=== PATIENT | male | born 1940 | race Caucasian/White ===

== ENCOUNTER 2024-02-03 23:55 | Inpatient (IN) | payer MEDICARE, BC, SELFPAY ==
[2024-02-03 22:08] VITALS: BP 134/81; BMI 27.4
[2024-02-03 22:24] LABS: % Basophils 0.4 % (0-2); % Immature Granulocytes 0.7 % (0-0.5); % Lymphocytes 2.5 % (20.5-51.1); % Monocytes 5.1 % (1.7-9.3); % Neutrophils 91.3 % (42.2-75.2); Absolute Immature Granulocytes 0.1 10^3/uL (0-0.05); Absolute Lymphocytes 0.2 10^3/uL (1.2-3.4); Absolute Monocytes 0.4 10^3/uL (0.1-0.6); Absolute Neutrophils 6.7 10^3/uL (1.4-6.5); Hematocrit 40.7 % (39.0-52.0); Hemoglobin 13.3 g/dL (13.0-18.0); Mean Corp Hgb Conc. 32.7 g/dL (33.0-37.0); Mean Corpuscular Hgb 27.5 pg (27.0-31.0); Mean Corpuscular Volume 84.1 fL (80.0-94.0); Mean Platelet Volume 10.4 fL (7.4-10.4); Nucleated Red Blood Cells % 0 % (-); Platelet Count 207 10^3/uL (130-400); Red Blood Cell Count 4.84 10^6/uL (4.70-6.10); Red Cell Dist. Width 18.4 % (11.5-14.5); White Blood Cell Count 7.3 10^3/uL (4.8-10.8)
[2024-02-03 22:37] LABS: Urine Albumin 1+ (Neg - Trace); Urine Bilirubin Negative (Negative); Urine Character Clear (Clear); Urine Color Yellow; Urine Glucose Negative (Negative); Urine Ketone Negative (Negative); Urine Leukocyte Negative (Negative); Urine Nitrite Negative (Negative); Urine Occult Blood 2+ (Negative); Urine Specific Gravity 1.025 (<1.030); Urine Urobilinogen 2+ (Neg - 1+)
--- NOTE | 2024-02-03 22:43 | ED.GENMED ---
History of Present Illness
General
Chief Complaint: Heart Rate Problem
Source: patient and spouse
Exam Limitations: clinical condition
Time Seen by Provider: 02/03/24 22:05
Nursing documentation reviewed up to this point in time: agreed with
Travel History
Have you had any contact with someone who has COVID-19?: No
Do you have any symptoms of coronavirus? Fever > 100 degrees, chills, cough, shortness of breath, sore throat, loss of taste or smell, muscle aches, or headache?: No
History of Present Illness
History of Present Illness:
Patient is an 83-year-old male visiting from [place] who has had increasing weakness and fell in night striking the back of his head. Patient is not on any blood thinners other than aspirin. Patient has a history of atrial fibrillation but has
a Watchman device. Patient started 2 days ago with a cough and congestion. Yesterday did not have a good day as he was increasingly weak and had difficulty walking even with assistance. Patient's appetite is diminished. Patient does feel short
of breath. Patient denies chest pain. Patient denies abdominal pain, nausea, vomiting or diarrhea. Patient has not had a bowel movement in a couple days. Patient is complaining of urinary urgency and frequency and his urine was dark. Patient
had a radical prostatectomy for prostate cancer 12 years ago. Patient also had a history of Hodgkin's lymphoma that was diagnosed and treated with chemo in January 2020. 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 Patient's
[employer] magazine recently took off couple lesions on his toes. Patient is diabetic.
Past History
Past History
ED Past Medical History: Arrthythmia (Atrial fibrillation), Cancer (Hodgkin's lymphoma, prostate cancer), GERD, HTN, Hypercholesterolemia and NIDDM
Social History
Drug: Marijuana
Review of Systems
Review of Systems
All Other Systems: ROS reviewed and negative except as documented in HPI and ROS
Constitutional: Reports fever, fatigue and chills
EENT: Reports no symptoms
Respiratory: Reports cough and trouble breathing
Cardiac: Denies chest pain
ABD/GI: Reports constipated and anorexia; Denies abdominal pain, nausea, vomiting or diarrhea
: Reports frequency, difficulty voiding, urgency and dark urine; Denies dysuria or bleeding
Musculoskeletal: Reports no symptoms
Skin: Reports other (Feet are always discolored)
Neurological: Reports weakness (Generalized); Denies headache
Hematologic/Lymphatic: Reports bruising
Phy Exam
Physical Exam
Physical Exam:
Physical Exam
General: No apparent mild to moderate distress, alert and appropriate but somewhat lethargic, well nourished, dry mucous membranes
HENT: Normocephalic with no deformity but mild tenderness posteriorly, supple with no lymphadenopathy, no thyromegaly. No cervical spine tenderness
Eyes: Clear sclera, conjuctiva without injection
Heart: irregular irregular rhythm and tachycardic rate. No S3, S4. No murmur. No NVD
Lungs: No respiratory distress, no stridor, lung sounds are coarse but clear and equal bilaterally, chest wall symmetrical and nontender
Abdomen: Soft, nontender, no organomegaly, ess, BS good
Neuro: Alert and usual mental status, CN II - XII intact, no motor focality
Skin: no rash. Multiple areas of ecchymosis with discoloration of bilateral feet which according to his is chronic
Psychiatric: well kept. interactive and cooperative
Extremities: No edema, cyanosis, tenderness
Course
Orders/Labs/Results
Orders:
Orders
02/03/24 22:04
Electrocardiogram (*1) Urgent
Reason for Study: Chest Pain
Cardiac Monitoring- Treatment ONCE
EKG- Treatment ONCE
IV Insert/Care/Rem.- Treatment PRN
O2 Therapy [RESP] Urgent
Titrate/Wean O2 to maintain O2 sat greater than (%): 90
Special Instructions: Maintain sats >/=90%
Pulse Ox/spot Check [RESP] Urgent
Quantity: 1
Special Instructions: ON ROOM AIR
02/03/24 22:06
Straight cath- Treatment ONCE
02/03/24 22:13
0.9% Sodium Chloride 500 ml [Nss] 500 ml IV BOLUS
CR Chest Portable - 1 View Urgent
Comment:
Reason For Exam: weakness sob
Reason Study Needs to be Portable: Patient Unstable
02/03/24 22:18
Complete Blood Count/With Diff Urgent
Comprehensive Metabolic Panel Urgent
Lactic Acid Q4H
Comment: ON ICE, CANCEL 2ND ORDER IF FIRST LACTIC ACID LEVEL <2
Troponin I Urgent
Urinalysis Reflex To Culture Urgent
Date Specimen was Collected: 02/03/24
Time Specimen was Collected: 22:06
Urine Microscopic Reflex Cult Urgent
Blood Culture Q30M
[facility] Source: Blood/Venous
Specimen Description:
Comment: FROM 2 SEPARATE SITES
02/03/24 22:19
Blood Culture Q30M
[facility] Source: Blood/Venous
Specimen Description:
Comment: FROM 2 SEPARATE SITES
02/03/24 22:22
Acetaminophen [Tylenol] 1,000 mg PO NOW STA
02/03/24 22:37
COVID-19 Antigen Urgent
Source: Nasal Swab
02/03/24 22:49
CT Head W/o Iv Contrast Urgent
Comment:
Reason For Exam: fell struck back of head
02/03/24 22:52
0.9% Sodium Chloride 1000 ml [Nss] 1,000 ml IV NOW STA
Azithromycin 500 mg/250 ml [Zithromax Infusion] 500 mg in 250 ml IV NOW
CefTRIAXone [Rocephin] 1,000 mg IV NOW STA
02/03/24 23:30
0.9% Sodium Chloride 500 ml [Nss] 500 ml IV BOLUS
02/04/24 02:15
Lactic Acid Q4H
Comment: ON ICE, CANCEL 2ND ORDER IF FIRST LACTIC ACID LEVEL <2
Abnormal Lab Results
02/03/24
22:18
MCHC 32.7 L g/dL
(33.0-37.0)
RDW 18.4 H %
(11.5-14.5)
Abs Immat Gran (auto) 0.1 H 10^3/uL
(0-0.05)
Absolute Neuts (auto) 6.7 H 10^3/uL
(1.4-6.5)
Absolute Lymphs (auto) 0.2 L 10^3/uL
(1.2-3.4)
Immature Gran % 0.7 H %
(0-0.5)
Neutrophils % 91.3 H %
(42.2-75.2)
Lymphocytes % 2.5 L %
(20.5-51.1)
Sodium 134 L mmol/L
(135-145)
Carbon Dioxide 20 L mmol/L
(22-30)
BUN 22 H mg/dl
(9-20)
Glucose 121 H mg/dl
(70-99)
Lactic Acid 6.0 H* mmol/L
(0.7-2.0)
Total Bilirubin 1.9 H mg/dl
(0.2-1.3)
AST 60 H U/L
(17-59)
Alkaline Phosphatase 148 H U/L
(38-126)
Troponin I 0.147 H* ng/ml
Total Protein 6.2 L g/dl
(6.3-8.2)
Ur Occult Blood Reflex 2+ A
(Negative)
Urine Urobilinogen 2+ A
(Neg - 1+)
Urine RBC 7-10 A /HPF
(0-2)
Urine Bacteria (Reflex) Few A
(Negative)
Urine Albumin (Reflex) 1+ A
(Neg - Trace)
02/03/24 22:18
02/03/24 22:18
Vital Signs
Initial and Last Documented VS:
Initial Vital Signs
Pulse Resp BP Pulse Ox
108 28 134/81 92
02/03/24 22:08 02/03/24 22:08 02/03/24 22:08 02/03/24 22:08
Last Documented Vital Signs
Temp Pulse Resp BP Pulse Ox
102.1 F H 108 28 134/81 92
02/03/24 22:16 02/03/24 22:08 02/03/24 22:08 02/03/24 22:08 02/03/24 22:08
*Radiology
Radiology exam reviewed: radiology read reviewed (Multiple lobar pneumonia)
*Pulse Oximetry
Patient hypoxic: no
*EKG
Interpreted by ED Provider?: Yes
EKG Intrepretation Date: 02/03/24
EKG Intrepretation Time: 22:51
Interpretation: abnormal
Comparison EKG: no comparison EKG present
Heart Rate: 109
Rate: tachycardiac
Rhythm: a-fib
[place]: left axis deviation
Interval: normal QT interval
QRS Pattern: right bundle branch block
Ischemia: non-specific ST changes
*Recreation Worker Interpretation
Rate: tachycardiac
Interpretation: abnormal
Heart Rate: 110
Rhythm: a-fib
*Critical Care Note
Total Time (30-74mins, 75-104mins- exclusive of procedures): 45 minutes
Update Note
Update Note:
Patient's lactic is elevated. Patient has pneumonia. Patient will be admitted.
ED Attending Note
-
Portions of this chart may have been created with voice recognition software.� Occasional wrong word or��sound alike� substitutions may have occurred due to the inherent limitations of voice recognition software.
Discharge Plan
Departure
Patient Disposition: Admit
Date of Disposition: 02/03/24
Time of Disposition: 22:55
Admit to: ICU and IMU
Admit to doctor: Hospitalist
Presentation/result/management discussed w/ accepting MD/DO: Hospitalist
Patient with high blood pressure during this ER visit?: No
Condition: Serious
Discharge Problem:
Pneumonia, Sepsis
Prescriptions:
No Action
glyburide 5 mg Tablet
5 mg PO DAILY
sertraline [Zoloft] 100 mg Tablet
75 mg PO DAILY
pantoprazole [Protonix] 40 mg Tablet,Delayed Release (Dr/Ec)
40 mg PO DAILY
metoprolol succinate [Toprol XL] 25 mg Tablet Extended Release 24 Hr
25 mg PO BID
bupropion HCl [Wellbutrin XL] 150 mg Tablet Extended Release 24 Hr
75 mg PO DAILY
tadalafil 2.5 mg Tablet
2.5 mg PO DAILY
Repatha Syringe 140 mg/mL Syringe
140 mg SC Q2W
Referrals:
UNKNOWN - PT DOES,NOT KNOW [Family Provider] -
Interventions
Interventions:
*Risk Screen - Suicide Last Done: 02/03/24 22:08
*General Assessment Last Done: 02/03/24 22:08
*Neglect/Abuse Screening Last Done: 02/03/24 22:08
ED- Cardiac Assessment Last Done: 02/03/24 22:21
Discharge Date and Time
Print Language: ROMANIAN
[2024-02-03] MEDS: NSS 500 IV (22:45)
[2024-02-03] MEDS: TYLENOL 1000 MG PO (22:46)
[2024-02-03 22:54] LABS: Urine Bacteria Few (Negative)
[2024-02-03 22:56] LABS: Troponin I 0.147 ng/ml
[2024-02-03 23:00] LABS: COVID-19 Antigen Negative (Negative)
[2024-02-03] MEDS: NSS 1000 ML IV (23:04)
[2024-02-03] MEDS: ROCEPHIN 1000 MG IV (23:05)
[2024-02-03 23:08] LABS: Albumin 3.7 g/dl (3.5-5.0); Blood Urea Nitrogen 22 mg/dl (9-20); Carbon Dioxide 20 mmol/L (22-30); Estimated Creatinine Clearance 51 ml/min; Total Bilirubin 1.9 mg/dl (0.2-1.3); Total Protein 6.2 g/dl (6.3-8.2); eGFR > 60.00
[2024-02-03] MEDS: ZITHROMAX INFUSION 250 IV (23:09)
[2024-02-03 23:19] LABS: ALT (SGPT) 32 U/L (0-50); AST (SGOT) 60 U/L (17-59); Alkaline Phosphatase 148 U/L (38-126); Chloride 100 mmol/L (98-107); Glucose 121 mg/dl (70-99); Potassium 4.6 mmol/L (3.5-5.1); Sodium 134 mmol/L (135-145)
[2024-02-04] VITALS (39 sets, daily range): BP systolic 87–163; BP diastolic 56–122; PULSE 94–105; BMI 27.6
--- NOTE | 2024-02-04 | HPS.HSE ---
Family Physician
-
Family Physician: NOT KNOW UNKNOWN - PT DOES
Chief Complaint
-
Fall / Weakness
History of Present Illness
Patient is an 83y M with PMH significant for ASCVD, lymphoma and DM-II who presents to ED for evaluation s/p fall at home. Patient and his are visiting family in the area - currently reside in [place]. Patient states that he began with
cough, congestion symptoms about 3 days ago. He had some fever / chills over the past 24 hours and felt somewhat SOB and increasingly weak. Patient has some gait instability at baseline due to peripheral neuropathy. This evening, he attempted to
get OOB to use the bathroom, lost his balance and fell to the floor. He states that he did strike the back of his head on the floor. He denies any LOC. He denies any chest pain, palpitations, dizziness, etc.
Patient was brought to the ED for evaluation and was noted to have fever to 102.1. Further evaluation reveals left-sided pneumonia / sepsis.
reportedly had some cold symptoms prior to the patient. He denies any other sick contacts.
Medical History
Past Medical History
Past Medical History: Reports Other
Additional Past Medical History:
ASCVD
Permanent Atrial Fibrillation
Hodgkin's Lymphoma (2000)
Peripheral Neuropathy (chemo induced)
DM-II
Factor XI Deficiency
BPH
Anxiety / Depression
Past Surgical History: Reports Other
Additional Past Surgical History:
PTCA with Stent
T&A (and incidental uvulectomy)
Watchman Device
Left Knee Surgery
Excisional Lymph Node Biopsy
Social History
Tobacco: Vaping (Current every day THC vape use.)
Alcohol: Occasional (Very rare.)
Drug: Marijuana (See above.)
Personal:
Living: With Family
Family History
Family History: Not pertinent
Allergies / Home Medications
Allergies reflects when Allergies were last updated in [facility].
Home Medications with original date entered in [facility]
Allergy/Medication List:
Allergies
Allergy/AdvReac Type Severity Reaction Status Date / Time
fentanyl Allergy Unknown Verified 02/03/24 22:16
midazolam [From Versed] Allergy Unknown Verified 02/03/24 22:16
morphine Allergy Rash Verified 02/03/24 22:16
Home Medications
aspirin 81 mg chewable tablet 81 mg PO HS 02/03/24
bupropion HCl 150 mg 24 hr tablet, extended release (Wellbutrin XL) 75 mg PO DAILY 02/03/24
evolocumab 140 mg/mL subcutaneous syringe (Repatha Syringe) 140 mg SC Q2W 02/03/24
glyburide 5 mg tablet 5 mg PO DAILY 02/03/24
metoprolol succinate 25 mg tablet,extended release 24 hr (Toprol XL) 25 mg PO BID 02/03/24
mirabegron 25 mg tablet,extended release 24 hr (Myrbetriq) 25 mg PO HS 02/03/24
nortriptyline 25 mg capsule 25 mg PO HS 02/03/24
pantoprazole 40 mg tablet,delayed release (Protonix) 40 mg PO DAILY 02/03/24
sertraline 100 mg tablet (Zoloft) 75 mg PO DAILY 02/03/24
tadalafil 2.5 mg tablet 2.5 mg PO DAILY 02/03/24
Review of Systems
-
History Source: Patient and Family
A 12 point ROS was completed and negative except as noted: Yes
Constitutional: Reports Fever, Fatigue and Chills
EENT: Denies Sore Throat
Respiratory: Reports Cough and Trouble Breathing; Denies Hemoptysis
Cardiac: Denies Chest Pain, Diaphoresis, Palpitations or Syncope
Abdomen/GI: Reports Constipated (Last BM 3 days ago.); Denies Abdominal Pain, Nausea, Vomiting or Diarrhea
: Denies Dysuria, Frequency or Flank Pain
Musculoskeletal: Denies Joint Pain, Joint Swelling or Edema
Neurological: Reports Weakness and Numbness; Denies Dizzy or Headache
Psych: Denies Depression or Anxiety
Physical Exam
Vital Signs
Vital Signs
Temp Pulse Resp BP Pulse Ox
102.1 F H 99 37 134/81 96
02/03/24 22:16 02/03/24 23:15 02/03/24 23:15 02/03/24 22:08 02/03/24 23:15
Physical Exam
General: Other (83y M in no acute distress.)
HEENT: Moist mucous membranes and PERRLA
Respiratory: Other (Coarse rhonchi throughout the L lung. R relatively clear. No wheezing.)
Cardiac: S1/S2 and Regular Rhythm
GI: Soft, Non Tender, Non Distended and Normal Bowel Sounds
Musculoskeletal: No Clubbing and Other (Poor capillary refill b/l feet with diminished pulses bilaterally. Superficial skin lesions R great toe (planter), L second toe (distal). L lateral ankle wound with dressing in place.)
Neuro: AO x 3
Psych: No Anxious or Depressed
Laboratory Results
-
02/03/24 22:18
02/03/24 22:18
Laboratory Results
Lactic Acid 6.0 mmol/L (0.7-2.0) H* 02/03/24 22:18
Total Bilirubin 1.9 mg/dl (0.2-1.3) H 02/03/24 22:18
AST 60 U/L (17-59) H 02/03/24 22:18
ALT 32 U/L (0-50) 02/03/24 22:18
Alkaline Phosphatase 148 U/L (38-126) H 02/03/24 22:18
Troponin I 0.147 ng/ml H* 02/03/24 22:18
Impression/Plan
-
A/P: Patient is an 83y M with PMH significant for ASCVD, DM-II and peripheral neuropathy who presents to ED with several days of cough / congestion and fall at home this evening.
Left Pneumonia
Acute Hypoxemic Respiratory Insufficiency secondary to the above
Sepsis secondary to the above
- Admit for further evaluation and treatment.
- Patient presents with fever, tachycardia, tachypnea and CXR showing L multilobar pneumonia.
- Evidence for life-threatening organ dysfunction in the form of acute hypoxemia with SpO2 92% on supplemental O2.
- Lactate = 6 on initial labs.
- IV abx for CAP.
- Supportive care including IVFs, nebs, O2, etc.
- Follow for clinical improvement.
- Follow-up culture data and adjust abx as needed.
- Follow serial lactate levels for improvement.
Non-Ischemic Myocardial Injury
ASCVD
- Initial troponin = 0.147. Elevation likely secondary to sepsis.
- EKG shows RBBB with no prior tracing to compare.
- Continue to follow to peak.
- Continue current CV med regimen including daily ASA.
- Consider Cardiology evaluation if any chest pain, EKG changes or troponin continues to increase.
Fall at Home
Peripheral Neuropathy secondary to Chemo
Chronic Gait Dysfunction secondary to the above
- CT head without acute findings this evening.
- Suspect increased weakness secondary to infection / sepsis.
- Treat underlying infection as noted above.
- Continue nortriptyline.
- PT / OT evaluations.
- Follow for improvement.
DM-II
- Stable. Hold sulfonylurea acutely.
- Follow glucose and cover with SSI as needed.
- Update A1C.
Permanent Atrial Fibrillation
- Stable. HR around 100 bpm.
- Continue current med regimen including Toprol for rate control.
- Watchman device in place for stroke risk reduction.
Factor XI Deficiency
- Stable. Scattered ecchymosis but no evidence of more severe bleeding.
- CT head unremarkable as noted above.
Anxiety / Depression
- Stable. Continue outpatient med regimen.
DVT Prophylaxis: SCDs. Avoid pharmacologic prophylaxis given Factor XI deficiency
Code Status: Full
[2024-02-04] MEDS: NSS 500 IV (01:10)
[2024-02-04] MEDS: LOW STRENGTH ASPIRIN 81 MG PO ×2 (02:02→20:29)
[2024-02-04] MEDS: PAMELOR 25 MG PO ×2 (02:03→20:29)
[2024-02-04] MEDS: NSS 1000 IV (02:08)
[2024-02-04 02:41] LABS: Lactic Acid 1.4 mmol/L (0.7-2.0)
[2024-02-04 05:57] LABS: Hematocrit 33.5 % (39.0-52.0); Hemoglobin 10.9 g/dL (13.0-18.0); Mean Corp Hgb Conc. 32.5 g/dL (33.0-37.0); Mean Corpuscular Hgb 27.3 pg (27.0-31.0); Mean Platelet Volume 10.6 fL (7.4-10.4); Platelet Count 146 10^3/uL (130-400); Red Blood Cell Count 3.99 10^6/uL (4.70-6.10); Red Cell Dist. Width 17.9 % (11.5-14.5); White Blood Cell Count 6.7 10^3/uL (4.8-10.8)
[2024-02-04 06:27] LABS: ALT (SGPT) 30 U/L (0-50); AST (SGOT) 64 U/L (17-59); Alkaline Phosphatase 100 U/L (38-126); Blood Urea Nitrogen 21 mg/dl (9-20); Carbon Dioxide 22 mmol/L (22-30); Chloride 107 mmol/L (98-107); Direct Bilirubin 0.8 mg/dl (0.0-0.4); Estimated Creatinine Clearance 64 ml/min; Glucose 40 mg/dl (70-99); Potassium 3.9 mmol/L (3.5-5.1); Sodium 135 mmol/L (135-145); Total Bilirubin 1.1 mg/dl (0.2-1.3); Total Protein 5.7 g/dl (6.3-8.2); eGFR > 60.00
[2024-02-04 06:48] LABS: Glucose - Point of Care 39 mg/dl (70-99)
[2024-02-04] MEDS: DEXTROSE 50% SYRINGE 12.5 GRAMS IV (06:53)
[2024-02-04 07:19] LABS: Glucose - Point of Care 63 mg/dl (70-99)
[2024-02-04] MEDS: D5/0.9% SODIUM CHLORIDE 1000 IV (07:22)
[2024-02-04] MEDS: VENTOLIN NEBULES 2.5 MG INH (07:36)
[2024-02-04] MEDS: NOVOLOG FLEXPEN-LOW RESISTANCE SC ×2 (07:36→11:54)
--- NOTE | 2024-02-04 07:42 | W.PN.HOSP.TC ---
Today's Communication/Plan
-
see A/P
Assessment / Plan
Assessment / Plan
HPI: 83 yo M with PMH significant for ASCVD, lymphoma and DM-II who presented to ED for evaluation s/p fall at home. Patient and his are visiting family in the area - currently reside in [place].
Patient states that he began with cough, congestion symptoms about 3 days HOME HEALTH LPN. He had some fever / chills over the past 24 hours and felt somewhat SOB and increasingly weak.
Patient has some gait instability at baseline due to peripheral neuropathy. In the evening, he attempted to get OOB to use the bathroom, lost his balance and fell to the floor. He states that he did strike the back of his head on the floor. He
denied to LOC. He denies any chest pain, palpitations, dizziness, etc.
Patient was brought to the ED for evaluation and was noted to have fever to 102.1. Further evaluation reveals left-sided pneumonia / sepsis.
reportedly had some cold symptoms prior to the patient. He denies any other sick contacts.
CXR:
1. Dense airspace consolidation in the posterior basilar left lower lobe. Diagnostic possibilities are (1) left lower lobe pneumonia if there are signs/symptoms of pulmonary infection or (2) left lower lobe atelectasis/scarring.
2. Mild subpleural ground-glass opacity in the left upper lobe which could be mild pneumonia or scarring.
3. Moderate cardiomegaly.
4. No radiographic evidence for acute pulmonary edema or pleural effusion.
A/P:
# severe sepsis POA due to CAP/Left Pneumonia. Patient presented with fever, tachycardia, tachypnea and CXR showing L multilobar pneumonia.
# Acute Hypoxemic Respiratory Insufficiency secondary to the above
# Resolved lactic acidosis
Cont O2 support at 2L NC, he is not on home O2
COVID neg
check Flu, MRSA screen, follow blood Cx, sputum Cx
Cont Ceftriaxone/doxycycline
Cont DuoNebs ATC and PRN
Add prednisone 40 mg daily for mild wheezing
Add Mucinex and Vest therapy
Tylenol for fever/mild pain
# Troponin elevation likely Non-Ischemic Myocardial Injury
Initial troponin at 0.147. Follow for peak/plateau
EKG shows RBBB with no prior tracing to compare.
Continue current CV med regimen including daily ASA.
Consider Cardiology evaluation if any chest pain, EKG changes or troponin continues to increase.
# Fall at Home
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
# Chronic Gait Dysfunction secondary to the above
CT head without acute findings this evening.
Suspect increased weakness secondary to infection / sepsis.
Treat underlying infection as noted above.
Continue nortriptyline.
PT / OT evaluations.
# DM-II
# Hypoglycemia, resolved after treatment
Hold sulfonylurea acutely.
s/p D50 for hypoglycemia
Cover with ISS
Follow A1C.
# Permanent Atrial Fibrillation, Stable.
HR around 100 bpm.
Continue current med regimen including Toprol (with holding parameter) for rate control.
Watchman device in place for stroke risk reduction.
# Factor XI Deficiency- Stable.
Scattered ecchymosis but no evidence of more severe bleeding.
CT head unremarkable as noted above.
# Anxiety / Depression- Stable.
Continue outpatient med regimen.
DVT Prophylaxis: SCDs. Avoid pharmacologic prophylaxis given Factor XI deficiency
Code Status: Full
DW RN
DW at bedside
Anticipated Discharge: > 48 hours
Subjective/Interval History
-
Date of Service: February 04, 2024
Objective Data
-
Labs:
Laboratory Results
02/03/24 02/04/24 02/04/24
22:18 05:47 06:07
WBC 7.3 6.7
Hgb 13.3 10.9 L
Hct 40.7 33.5 L
Plt Count 207 146 D
Sodium 134 L Cancelled 135
Potassium 4.6 Cancelled 3.9
Chloride 100 Cancelled 107
Carbon Dioxide 20 L Cancelled 22
BUN 22 H Cancelled 21 H
Creatinine 1.0 Cancelled 0.8
Glucose 121 H Cancelled 40 L*
Calcium 9.0 Cancelled 8.0 L
Total Bilirubin 1.9 H Cancelled 1.1
AST 60 H Cancelled 64 H
ALT 32 Cancelled 30
Alkaline Phosphatase 148 H Cancelled 100
Vital Signs:
Vital Signs
Temp Pulse Resp BP Pulse Ox
38.9 C H 101 35 101/86 96
02/03/24 22:16 02/04/24 06:30 02/04/24 06:30 02/04/24 06:00 02/04/24 06:15
Review of Systems
-
Constitutional: Reports Fever
Respiratory: Reports Cough and Trouble Breathing
Physical Exam
-
General: Well Developed, Well Nourished, Comfortable, Respiratory Distress (mild) and Conversant
HEENT: Normocephalic, Atraumatic, Nose Appears Normal, Ears Appear Normal and Oxygen (2L NC)
Respiratory: Clear to Auscultation, Wheezes (mild at bases), Crackles (mild) and Non Labored Respirations; Negative Accessory Resp Muscle Use
Cardiac: Regular Rhythm and S1/S2
GI: Soft, Nontender, Nondistended and Normal Bowel Sounds
Skin: Warm and Dry
Neuro: Awake, Alert, Oriented and AO x 3
Psych: Calm and Intact Judgement/Insight
Data Reviewed
-
Diagnostic Radiology: Image personally visualized and interpreted and Report Reviewed by me
Labs: Labs Reviewed by me
[2024-02-04 08:13] LABS: Glucose - Point of Care 102 mg/dl (70-99)
[2024-02-04] MEDS: PROTONIX 40 MG PO (08:38)
[2024-02-04] MEDS: VIBRAMYCIN 100 MG PO ×2 (08:38→20:29)
[2024-02-04] MEDS: MUCINEX 1200 MG PO ×2 (08:38→20:29)
[2024-02-04] MEDS: COLACE 100 MG PO ×2 (08:39→20:29)
[2024-02-04] MEDS: ZOLOFT 25 MG PO ×2 (08:39→08:42)
[2024-02-04] MEDS: ZOLOFT 50 MG PO (08:39)
[2024-02-04] MEDS: DELTASONE 40 MG PO (08:39)
[2024-02-04] MEDS: TOPROL XL 25 MG PO ×2 (08:42→20:29)
[2024-02-04 10:21] LABS: Glucose - Point of Care 120 mg/dl (70-99)
--- NOTE | 2024-02-04 11:03 | CON.CAR ---
Consultation
Consultation Request
Date/Time Consultation Requested: 02/04/2024
Date/Time Consultation Performed: 02/04/2024
Requesting Provider: Dr. Kyle
Performing Provider: Dr. Alfaro
Reason for Consultation: Abnormal troponin
Medical History
-
Chief Complaint: Fall
History of Present Illness:
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
block, lymphoma and diabetes who presented for evaluation for a fall. He resides in [place]---I spoke to the covering set up mechanic heading machines(Dr Byrd covering for Dr Hodges) at family request to confirm historial data. He is her is visiting but for
the past 3 days has felt a cough and congestion with fever and chills. His is present and reports recent cold like symptoms. He reports he had been to [place] and got around great on Tuesday but did fly from [place] on Tuesday. With feeling
poorly he had increasing weakness and gait instability due to his neuropathy, he lost his balance and fell. He denies le edema, cp or weight gain,in fact has been trying to lose weight at home. In the ED on arrival, he was found to have a
temperature to 102.1. Chest x-ray showed left-sided pneumonia. We are asked to comment on elevated troponin.
Of note, he is quite dypsneic on conversation.
Past Medical History
Past Medical History: Arrhythmias (Chronic atrial fibrillation status post Watchman device), Cancer ( Hodgkin's lymphoma,), NIDDM and Other (BPH, anxiety, factor IX deficiency, peripheral neuropathy secondary to chemotherapy)
Past Surgical History: Orthopedic and Other (Lymph node biopsy)
Social History
Tobacco: Vaping ( THC every day)
Alcohol: Occasional
Drug: Marijuana (Vaping)
Personal:
Living: With Family
Family History
Family History: Reviewed & Not Pertinent
Allergies / Home Medications
Allergy/AdvReac Type Severity Reaction Status Date / Time
fentanyl Allergy Unknown Verified 02/03/24 22:16
midazolam [From Versed] Allergy Unknown Verified 02/03/24 22:16
morphine Allergy Rash Verified 02/03/24 22:16
�Medication �Instructions �Recorded �Confirmed �Type
aspirin 81 mg chewable tablet 81 mg PO HS Blood Clot 02/03/24 02/03/24 History
Prevention/Tx
bupropion HCl 150 mg 24 hr tablet, 75 mg PO DAILY Depression 02/03/24 02/03/24 History
extended release (Wellbutrin XL)
evolocumab 140 mg/mL subcutaneous 140 mg SC Q2W High Cholesterol 02/03/24 02/03/24 History
syringe (Repatha Syringe)
glyburide 5 mg tablet 5 mg PO DAILY Diabetes 02/03/24 02/03/24 History
metoprolol succinate 25 mg 25 mg PO BID Blood Pressure 02/03/24 02/03/24 History
tablet,extended release 24 hr
(Toprol XL)
mirabegron 25 mg tablet,extended 25 mg PO HS Urinary Issue 02/03/24 02/03/24 History
release 24 hr (Myrbetriq)
nortriptyline 25 mg capsule 25 mg PO HS Neurological Condition 02/03/24 02/03/24 History
pantoprazole 40 mg tablet,delayed 40 mg PO DAILY Gastrointestinal 02/03/24 02/03/24 History
release (Protonix) Issue
sertraline 100 mg tablet (Zoloft) 75 mg PO DAILY Depression 02/03/24 02/03/24 History
tadalafil 2.5 mg tablet 2.5 mg PO DAILY Urinary Issue 02/03/24 02/03/24 History
Review of Systems
-
All other systems: Negative unless noted
Physical Exam
Vital Signs
Temp Pulse Resp BP Pulse Ox
98.8 F 88 21 138/69 98
02/04/24 09:30 02/04/24 09:52 02/04/24 09:52 02/04/24 09:52 02/04/24 09:30
Lab Results
02/04/24 05:47
02/04/24 06:07
Troponin I Cancelled 02/04/24 16:15
Physical Exam
General: Well Developed, Well Nourished and Respiratory Distress (dyspneic with conversation.)
Respiratory: Wheezes (diffuse) and Crackles (b/l )
Cardiac: Irregular Rhythm, Murmur (none), Peripheral Edema (nonw) and JVD (difficult to assess with body habitus)
GI: Soft and Non Tender
Skin: Warm
Neuro: AO x 3
Impression / Plan
-
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
at home. Additionally, he has had increasing shortness of breath cough that is nonproductive and fever. He is noted to be quite febrile on arrival at 102.1. We are asked to comment on abnormal troponin.
Hypoxic respiratory failure: He is quite tachypneic with her conversation. He denies shortness of breath. This may very well be due to a pneumonia seen on x-ray however it seems worse than the chest x-ray appears to me. I did discuss this with
Dr. Kyle. I think it is reasonable to rule out PE given [address] flight given his degree of tachypnea. Certainly his hemophilia may prevent blood clot but I do not think this completely rules that out. Meanwhile he will continue to be
treated for pneumonia. Heart failure exam is difficult due to body habitus and chest x-ray did not show overt heart failure. However I will add proBNP given his history of dilated cardiomyopathy this may be playing a role.
Type II VA due to acute hypoxic respiratory failure: This may be contributed to the pneumonia, but ruling out PE is a good idea. We will update his echocardiogram on Tuesday or sooner if clinically indicated. He has known prior CAD. X-ray sounds
chronic we will request formal records.
Pneumonia: Severe, oxygen requiring oxygen. Treatment as per Dr. Kyle.
CAD: Status post PCI 2017 with recent angiogram 2020 showing patent stents: Continue aspirin and beta-sukhdeep, chronically on Repatha. No chest pain currently.
Chronic atrial fibrillation: Initially RVR but improved with treatments. Will continue to monitor rate. He is status post Watchman device.
Dilated cardiomyopathy recovered in the setting of Adriamycin, chronic. Volume exam is difficult. Heart failure may be at play. Will add proBNP. Will offer diuresis if feel this will improve his care. Will update echo.
RBBB chronic
My concern of their his severe tachypnea was discussed with Dr. Kyle. She agrees and we worry this may be out of proportion to the reported pneumonia. CT PE will be done. This will also help us evaluate his parenchyma of the the lungs.
Will follow-up.
Data Reviewed
-
EKG: Tracing Personally Visualized and interpreted (EKG tracing on arrival showed atrial fibrillation with rapid ventricular response at 109, right bundle branch block pattern and inferior infarct., Repeat shows atrial fibrillation with similar
right bundle branch block and inferior infarct rate of 84.)
Radiology: Image Personally Visualized and interpreted (Poor effort, no sign of heart failure), Report Reviewed by me (Dense airspace disease in the left lower lobe differential pneumonia versus atelectasis, moderate cardiomegaly, subpleural
groundglass opacity in left upper lobe consistent with mild pneumonia versus scarring.) and Other (CT head showed no acute abnormality)
Labs: Labs Reviewed by me (Initial lactic acidosis 6.0 with troponin of 0.147 increased to 3.06)
--- NOTE | 2024-02-04 11:16 | EDRN ---
Pt's in home aide in [place]
Dr. Marc Hodges Cardiology
[phone]
[facility]
[place], [place]
[2024-02-04] MEDS: TYLENOL 650 MG PO (11:26)
[2024-02-04] MEDS: DUONEB 3 ML INH ×4 (11:57→23:27)
[2024-02-04 12:11] LABS: Glycohemoglobin (HgbA1c) 6.3 % (4.0-5.6)
[2024-02-04 12:32] LABS: NT-proBNP 3820 pg/ml
[2024-02-04 12:51] LABS: Procalcitonin 13.27 ng/ml (0.0-0.25)
[2024-02-04 13:24] LABS: Glucose - Point of Care 160 mg/dl (70-99)
--- NOTE | 2024-02-04 13:58 | EDRN ---
Dr. Jamal Baca MD [facility]
[phone] cell
[2024-02-04 16:33] LABS: Glucose - Point of Care 187 mg/dl (70-99)
--- NOTE | 2024-02-04 17:08 | PTCARENOTE ---
Received approx 2pm, AAOx3- present. Imu monitors placed and admission completed bedside. Pt from [place], staying with daughter. Lungs scattered Rhonchi, NPC. 95% on RAIR. Slightly FOWLER. Appetite fair, No void noted yet. Last BM was
Tuesday- not uncommon for him not to go but q3-4 days. Wounds noted - centrella air mattress- nothing is new per pt. Call vasquez in reach.
[2024-02-04] MEDS: NOVOLOG FLEXPEN-LOW RESISTANCE 1 UNITS SC (18:11)
[2024-02-04 21:27] LABS: Glucose - Point of Care 271 mg/dl (70-99)
[2024-02-04] MEDS: ROCEPHIN 1000 MG IV (22:07)
[2024-02-04] MEDS: STERILE WATER FOR INJECTION 10 ML IV (22:08)
[2024-02-04] MEDS: MELATONIN 5 MG PO (23:20)
[2024-02-05] VITALS (16 sets, daily range): BP systolic 90–146; BP diastolic 70–105; PULSE 97–108; O2SAT 98; BMI 27.3
[2024-02-05 04:36] LABS: % Basophils 0.3 % (0-2); % Immature Granulocytes 0.5 % (0-0.5); % Lymphocytes 5.5 % (20.5-51.1); % Monocytes 9.8 % (1.7-9.3); % Neutrophils 83.9 % (42.2-75.2); Absolute Lymphocytes 0.4 10^3/uL (1.2-3.4); Absolute Monocytes 0.7 10^3/uL (0.1-0.6); Absolute Neutrophils 6.3 10^3/uL (1.4-6.5); Hematocrit 33.4 % (39.0-52.0); Mean Corp Hgb Conc. 32.9 g/dL (33.0-37.0); Mean Corpuscular Hgb 27.7 pg (27.0-31.0); Mean Corpuscular Volume 84.1 fL (80.0-94.0); Mean Platelet Volume 10.5 fL (7.4-10.4); Nucleated Red Blood Cells % 0 % (-); Platelet Count 180 10^3/uL (130-400); Red Blood Cell Count 3.97 10^6/uL (4.70-6.10); Red Cell Dist. Width 18.3 % (11.5-14.5); White Blood Cell Count 7.5 10^3/uL (4.8-10.8)
[2024-02-05 05:38] LABS: ALT (SGPT) 29 U/L (0-50); AST (SGOT) 51 U/L (17-59); Albumin 3.1 g/dl (3.5-5.0); Alkaline Phosphatase 122 U/L (38-126); Blood Urea Nitrogen 19 mg/dl (9-20); Calcium 8.8 mg/dl (8.4-10.2); Carbon Dioxide 23 mmol/L (22-30); Chloride 105 mmol/L (98-107); Direct Bilirubin 0.6 mg/dl (0.0-0.4); Estimated Creatinine Clearance 73 ml/min; Glucose 102 mg/dl (70-99); Magnesium 1.8 mg/dl (1.6-2.3); Potassium 3.8 mmol/L (3.5-5.1); Sodium 137 mmol/L (135-145); Total Bilirubin 0.8 mg/dl (0.2-1.3); Total Protein 5.5 g/dl (6.3-8.2); eGFR > 60.00
--- NOTE | 2024-02-05 06:17 | PTCARENOTE ---
Cared for pt overnight. aaox3 but forgetful. BA on. at bedside. AFib on monitor. VSS. Pt tachypneic & wheezing. Nebs given. Melatonin given HS. ivabx. NO other issues overnight. Will monitor.
[2024-02-05] MEDS: TYLENOL 650 MG PO (06:42)
[2024-02-05] MEDS: DUONEB 3 ML INH ×4 (08:17→19:38)
--- NOTE | 2024-02-05 09:16 | W.PN.HOSP.TC ---
Today's Communication/Plan
-
see A/P
Assessment / Plan
Assessment / Plan
HPI: 83 yo M with PMH significant for ASCVD, lymphoma and DM-II who presented to ED for evaluation s/p fall at home. Patient and his are visiting family in the area - currently reside in [place].
Patient states that he began with cough, congestion symptoms about 3 days JEWEL SAWYER. He had some fever / chills over the past 24 hours and felt somewhat SOB and increasingly weak.
Patient has some gait instability at baseline due to peripheral neuropathy. In the evening, he attempted to get OOB to use the bathroom, lost his balance and fell to the floor. He states that he did strike the back of his head on the floor. He
denied to LOC. He denies any chest pain, palpitations, dizziness, etc.
Patient was brought to the ED for evaluation and was noted to have fever to 102.1. Further evaluation reveals left-sided pneumonia / sepsis.
reportedly had some cold symptoms prior to the patient. He denies any other sick contacts.
CXR:
1. Dense airspace consolidation in the posterior basilar left lower lobe. Diagnostic possibilities are (1) left lower lobe pneumonia if there are signs/symptoms of pulmonary infection or (2) left lower lobe atelectasis/scarring.
2. Mild subpleural ground-glass opacity in the left upper lobe which could be mild pneumonia or scarring.
3. Moderate cardiomegaly.
4. No radiographic evidence for acute pulmonary edema or pleural effusion.
CT PE:
1. SEVERE LEFT LOWER LOBE PNEUMONIA and severe bronchitis in the left lower lobe bronchus and proximal segmental bronchi.
2. Moderate left upper lobe pneumonia.
3. Mild right upper and lower lobe pneumonia.
4. Mild cardiomegaly.
5. Severe calcific atherosclerotic plaque in the coronary arteries.
6. Left atrial appendage occlusion device in place.
7. 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
A/P:
# severe sepsis POA due to CAP/Left Pneumonia. Patient presented with fever, tachycardia, tachypnea and CXR showing L multilobar pneumonia.
# Acute Hypoxemic Respiratory Insufficiency secondary to the above
# Resolved lactic acidosis
Procal elevated at 13.27
CT PE negative for PE
Cont O2 support at 2L NC and wean as tolerated, he is not on home O2
COVID/Flu negative, Urine Legionella/Strep Ag negative, blood culture negative
Follow MRSA screen, sputum Cx if able
Cont Ceftriaxone/doxycycline
Cont DuoNebs ATC and PRN
Added prednisone 40 mg daily for mild wheezing
Added Mucinex and Vest therapy
Tylenol for fever/mild pain
# Troponin elevation likely Non-Ischemic Myocardial Injury
# h/o CAD
Pt without chest pain
troponin peaked at 3.06
EKG shows RBBB with no prior tracing to compare.
Continue current CV med regimen including daily ASA.
Check update on Tuesday
Cardiology on board
# Fall at Home
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
# Chronic Gait Dysfunction secondary to the above
CT head without acute findings this evening.
Suspect increased weakness secondary to infection / sepsis.
Treat underlying infection as noted above.
Continue nortriptyline.
PT / OT evaluations.
# L lateral ankle pain by wound site
wound care CS
Check arterial and venous LLE
Check LLE XR
add low dose Dilaudid for pain (pt has morphine listed under allergy)
# DM-II
# Hypoglycemia, resolved after treatment
Hold sulfonylurea acutely.
s/p D50 for hypoglycemia
Cover with ISS
A1C 6.3%
# Permanent Atrial Fibrillation, Stable.
Continue JEWEL SAWYER Toprol (with holding parameter) for rate control.
Watchman device in place for stroke risk reduction.
# Factor XI Deficiency- Stable.
Scattered ecchymosis but no evidence of more severe bleeding.
CT head unremarkable as noted above.
# Anxiety / Depression- Stable.
Continue outpatient med regimen.
DVT Prophylaxis: SCDs. Avoid pharmacologic prophylaxis given Factor XI deficiency
Code Status: Full
DW RN
Anticipated Discharge: > 48 hours
Subjective/Interval History
-
Date of Service: February 05, 2024
Objective Data
-
Labs:
Laboratory Results
02/05/24
04:25
WBC 7.5
Hgb 11.0 L
Hct 33.4 L
Plt Count 180 D
Sodium 137
Potassium 3.8
Chloride 105
Carbon Dioxide 23
BUN 19
Creatinine 0.7
Glucose 102 H
Calcium 8.8
Total Bilirubin 0.8
AST 51
ALT 29
Alkaline Phosphatase 122
Vital Signs:
Vital Signs
Temp Pulse Resp BP Pulse Ox
36.4 C 93 30 116/105 97
02/05/24 04:14 02/05/24 06:00 02/05/24 06:00 02/05/24 06:00 02/05/24 06:00
I&O
02/04/24 02/05/24 02/06/24
06:59 06:59 06:59
Output Total 800 / 800
Balance -800 / -800
Review of Systems
-
Musculoskeletal: Reports Other (L foot pain by L lateral ankle wound)
Physical Exam
-
General: Well Developed, Well Nourished, Comfortable, Respiratory Distress (mild) and Conversant
HEENT: Normocephalic, Atraumatic, Nose Appears Normal, Ears Appear Normal and Oxygen (2L NC)
Respiratory: Clear to Auscultation, Wheezes (mild at bases), Crackles and Non Labored Respirations; Negative Accessory Resp Muscle Use
Cardiac: Regular Rhythm and S1/S2
GI: Soft, Nontender, Nondistended and Normal Bowel Sounds
Skin: Warm, Dry, Lesions (small wound at L lateral ankle) and Other (ecchymosis of skin around the body)
Neuro: Awake, Alert, Oriented and AO x 3
Psych: Calm and Intact Judgement/Insight
Data Reviewed
-
Diagnostic Radiology: Image personally visualized and interpreted and Report Reviewed by me
CT Scan: Report Reviewed by me
Labs: Labs Reviewed by me
[2024-02-05 09:35] LABS: Glucose - Point of Care 72 mg/dl (70-99)
[2024-02-05] MEDS: NOVOLOG FLEXPEN-LOW RESISTANCE SC ×3 (09:42→21:26)
[2024-02-05] MEDS: VIBRAMYCIN 100 MG PO ×2 (10:47→20:52)
[2024-02-05] MEDS: WELLBUTRIN XL (24 hour extended release) 150 MG PO (10:47)
[2024-02-05] MEDS: ZOLOFT 87.5 MG PO (10:47)
[2024-02-05] MEDS: COLACE 100 MG PO ×2 (10:50→20:51)
[2024-02-05] MEDS: MUCINEX 1200 MG PO ×2 (10:50→20:51)
[2024-02-05] MEDS: PROTONIX 40 MG PO (10:50)
[2024-02-05] MEDS: DELTASONE 40 MG PO (10:50)
[2024-02-05] MEDS: TOPROL XL 25 MG PO (10:50)
--- NOTE | 2024-02-05 13:45 | W.PN.CD ---
Today's Communication / Plan
-
increase bb to 37.5mg bid
echo tomorrow
Impression / Plan
-
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
at home. Additionally, he has had increasing shortness of breath cough that is nonproductive and fever. He is noted to be quite febrile on arrival at 102.1. We are asked to comment on abnormal troponin.
Hypoxic respiratory failure due to severe multilobar PNA:
-improving
-care as per medicine
-on Abx and steroids
Type II RI due to acute hypoxic respiratory failure: Pk trop 3. No chest pain,
- We will update his echocardiogram on Tuesday or sooner if clinically indicated. He has known prior CAD. RBBB sounds chronic we will request formal records.
Pneumonia: Severe, oxygen requiring oxygen. Treatment as per Dr. Kyle.
CAD: Status post PCI 2017 with recent angiogram 2020 showing patent stents: Continue aspirin and beta-sukhdeep, chronically on Repatha. No chest pain currently.
Chronic atrial fibrillation: Initially RVR but improved with treatments. Still slightly elevated, I will increase to 37.5mg bid as reports OH with 50mg bid.
Will continue to monitor rate. He is status post Watchman device.
Dilated cardiomyopathy recovered in the setting of Adriamycin, chronic. Volume exam is difficult. Heart failure may be at play. Will add proBNP. Will offer diuresis if feel this will improve his care. Will update echo.
RBBB chronic
HTN: chronic mildly elevated, increasing bb
Subjective:he is feeling much better, still no cp, breathing feeling better, still coughing
Data Reviewed:
CT PE scan: 02/04/24:
1. SEVERE LEFT LOWER LOBE PNEUMONIA and severe bronchitis in the left lower lobe bronchus and proximal segmental bronchi.
2. Moderate left upper lobe pneumonia.
3. Mild right upper and lower lobe pneumonia.
4. Mild cardiomegaly.
5. Severe calcific atherosclerotic plaque in the coronary arteries.
6. Left atrial appendage occlusion device in place.
7. 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
Physical Exam
Vital Signs/Labs
Vital Signs
Temp Pulse Resp BP Pulse Ox
97.5 F 85 24 144/92 94
02/05/24 04:14 02/05/24 12:30 02/05/24 12:30 02/05/24 10:50 02/05/24 10:58
02/04/24 02/05/24 02/06/24
06:59 06:59 06:59
Actual Weight 79.4 kg 78.925 kg
02/05/24 04:25
02/05/24 04:25
Magnesium 1.8 mg/dl (1.6-2.3) 02/05/24 04:25
02/04/24
09:04
[id number] Pept 3820
LAB Results
02/03/24 02/04/24 02/04/24
22:18 09:04 15:21
Troponin I 0.147 H* 3.060 H* 1.980 H* D
02/04/24 02/04/24
16:15 21:00
Troponin I Cancelled Cancelled
Physical Exam
Constitutional: No acute distress
Cardiovascular: Pedal edema is absent, JVD pressure is normal, Systolic murmur absent and Rhythm/rate is irregular
Respiratory: Respiratory effort normal and Crackles Present (diffuse b/l)
GI: Soft
Neuro/Psych: AO x 3
Data Reviewed
-
Date of Service: February 05, 2024
Medical Decision Making: Review of Case with other Provider (Dr Kyle increasing bb)
EKG: Other (tele afib with accelerated rates at time)
[2024-02-05 13:54] LABS: Glucose - Point of Care 124 mg/dl (70-99)
--- NOTE | 2024-02-05 15:05 | PTCARENOTE ---
Pt remains pleasant and cooperative, at bedside. Pt was sent for peripheral vascular US, no evidence of DVT. Pt amb in room with x1 assist and rolling walker. Pt downgraded to tele, awaiting bed. Will also send for left foot xray when staff
avail to transport.
--- NOTE | 2024-02-05 16:36 | CM ---
Alert awake oriented patient who lives with his Catherine in [place]. They are visiting Dgt and son in law in [place] and became ill.They live in a 1 story home with 0 step to enter and bed and bathroom on first floor. He is assisted in all
activities of daily living.Spoke with Catherine she requested [facility] . Explained PT OT recommended SNF. She requested [facility] liaison to assess his needs .
VN hx / No SNF history
Pharmacy [facility]
PCP DR Jamal Baca in [place]
PLAN will depend on PT OT evals . requested [facility] only.
[2024-02-05 19:21] LABS: Glucose - Point of Care 296 mg/dl (70-99)
[2024-02-05] MEDS: TOPROL XL 37.5 MG PO (20:51)
[2024-02-05] MEDS: LOW STRENGTH ASPIRIN 81 MG PO (20:51)
[2024-02-05] MEDS: PAMELOR 25 MG PO (20:51)
[2024-02-05] MEDS: DILAUDID 0.25 MG IV (20:53)
[2024-02-05 21:18] LABS: Glucose - Point of Care 248 mg/dl (70-99)
[2024-02-05] MEDS: NOVOLOG FLEXPEN 5 UNITS SC (21:27)
[2024-02-05] MEDS: ROCEPHIN 1000 MG IV (23:08)
[2024-02-05] MEDS: STERILE WATER FOR INJECTION 10 ML IV (23:09)
[2024-02-06] VITALS (13 sets, daily range): BP systolic 124–153; BP diastolic 72–115; PULSE 80; BMI 27.9
--- NOTE | 2024-02-06 02:06 | PTCARENOTE ---
Pt had complaints of pain in left foot, medication given(see MAR). at bed side, stayed the night. Call vasquez within reach, bed alarm on.
[2024-02-06 04:59] LABS: % Basophils 0.3 % (0-2); % Immature Granulocytes 0.8 % (0-0.5); % Lymphocytes 6.2 % (20.5-51.1); % Monocytes 7.1 % (1.7-9.3); % Neutrophils 85.6 % (42.2-75.2); Absolute Immature Granulocytes 0.1 10^3/uL (0-0.05); Absolute Lymphocytes 0.5 10^3/uL (1.2-3.4); Absolute Monocytes 0.6 10^3/uL (0.1-0.6); Absolute Neutrophils 6.7 10^3/uL (1.4-6.5); Hematocrit 35.4 % (39.0-52.0); Hemoglobin 11.2 g/dL (13.0-18.0); Mean Corp Hgb Conc. 31.6 g/dL (33.0-37.0); Mean Corpuscular Hgb 27.4 pg (27.0-31.0); Mean Corpuscular Volume 86.6 fL (80.0-94.0); Mean Platelet Volume 10.3 fL (7.4-10.4); Nucleated Red Blood Cells % 0 % (-); Platelet Count 178 10^3/uL (130-400); Red Blood Cell Count 4.09 10^6/uL (4.70-6.10); Red Cell Dist. Width 18.6 % (11.5-14.5); White Blood Cell Count 7.8 10^3/uL (4.8-10.8)
[2024-02-06 05:27] LABS: ALT (SGPT) 31 U/L (0-50); AST (SGOT) 42 U/L (17-59); Alkaline Phosphatase 115 U/L (38-126); Blood Urea Nitrogen 22 mg/dl (9-20); Carbon Dioxide 25 mmol/L (22-30); Chloride 105 mmol/L (98-107); Direct Bilirubin 0.6 mg/dl (0.0-0.4); Estimated Creatinine Clearance 86 ml/min; Glucose 132 mg/dl (70-99); Magnesium 1.8 mg/dl (1.6-2.3); Potassium 4.6 mmol/L (3.5-5.1); Sodium 137 mmol/L (135-145); Total Bilirubin 0.7 mg/dl (0.2-1.3); Total Protein 5.4 g/dl (6.3-8.2); eGFR > 60.00
[2024-02-06] MEDS: DUONEB 3 ML INH ×4 (07:49→19:42)
[2024-02-06] MEDS: COLACE 100 MG PO ×2 (08:07→19:53)
[2024-02-06] MEDS: VIBRAMYCIN 100 MG PO (08:08)
[2024-02-06] MEDS: MUCINEX 1200 MG PO ×2 (08:08→19:53)
[2024-02-06] MEDS: PROTONIX 40 MG PO (08:08)
[2024-02-06] MEDS: TOPROL XL 37.5 MG PO ×2 (08:08→19:54)
[2024-02-06] MEDS: ZOLOFT 87.5 MG PO (08:09)
[2024-02-06] MEDS: DELTASONE 40 MG PO (08:09)
[2024-02-06] MEDS: WELLBUTRIN XL (24 hour extended release) 150 MG PO (08:09)
[2024-02-06] MEDS: NOVOLOG FLEXPEN-LOW RESISTANCE SC (08:23)
[2024-02-06 08:30] LABS: Glucose - Point of Care 112 mg/dl (70-99)
--- NOTE | 2024-02-06 08:52 | W.PN.HOSP.TC ---
Addendum entered and electronically signed by Tiffani Kyle MD 02/06/24 16:42:
# Non-Ischemic Myocardial Injury
Original Note:
Today's Communication/Plan
-
see A/P
Assessment / Plan
Assessment / Plan
HPI: 83 yo M with PMH significant for ASCVD, lymphoma and DM-II who presented to ED for evaluation s/p fall at home. Patient and his are visiting family in the area - currently reside in [place].
Patient states that he began with cough, congestion symptoms about 3 days CHICKEN CLEANER. He had some fever / chills over the past 24 hours and felt somewhat SOB and increasingly weak.
Patient has some gait instability at baseline due to peripheral neuropathy. In the evening, he attempted to get OOB to use the bathroom, lost his balance and fell to the floor. He states that he did strike the back of his head on the floor. He
denied to LOC. He denies any chest pain, palpitations, dizziness, etc.
Patient was brought to the ED for evaluation and was noted to have fever to 102.1. Further evaluation reveals left-sided pneumonia / sepsis.
reportedly had some cold symptoms prior to the patient. He denies any other sick contacts.
CXR:
1. Dense airspace consolidation in the posterior basilar left lower lobe. Diagnostic possibilities are (1) left lower lobe pneumonia if there are signs/symptoms of pulmonary infection or (2) left lower lobe atelectasis/scarring.
2. Mild subpleural ground-glass opacity in the left upper lobe which could be mild pneumonia or scarring.
3. Moderate cardiomegaly.
4. No radiographic evidence for acute pulmonary edema or pleural effusion.
CT PE:
1. SEVERE LEFT LOWER LOBE PNEUMONIA and severe bronchitis in the left lower lobe bronchus and proximal segmental bronchi.
2. Moderate left upper lobe pneumonia.
3. Mild right upper and lower lobe pneumonia.
4. Mild cardiomegaly.
5. Severe calcific atherosclerotic plaque in the coronary arteries.
6. Left atrial appendage occlusion device in place.
7. 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
A/P:
# severe sepsis POA due to CAP/Left Pneumonia. Patient presented with fever, tachycardia, tachypnea and CXR showing L multilobar pneumonia.
# Acute Hypoxemic Respiratory Insufficiency secondary to the above
# Resolved lactic acidosis
Procal elevated at 13.27
CT PE negative for PE
weaned off O2, he is not on home O2
COVID/Flu negative, Urine Legionella/Strep Ag negative, blood culture negative, MRSA screen neg
Cont Ceftriaxone, change doxycycline to azithromycin
Cont DuoNebs ATC and PRN
Added prednisone 40 mg x5 days for mild wheezing (resolved)
Added Mucinex and acapella
Tylenol for fever/mild pain
# Troponin elevation likely Non-Ischemic Myocardial Injury
# h/o CAD
Pt without chest pain
troponin peaked at 3.06
EKG shows RBBB with no prior tracing to compare.
Continue current CV med regimen including daily ASA. Toprol increased by card.
Follow update echo
Cardiology on board
# Fall at Home
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
# Chronic Gait Dysfunction secondary to the above
CT head without acute findings this evening.
Suspect increased weakness secondary to infection / sepsis.
Treat underlying infection as noted above.
Continue nortriptyline.
PT / OT recc acute vs SNF, would like [facility]
Physiatry consulted
# L lateral ankle pain by L lateral malleolus wound site, like due to neuropathy
Wound care CS
Neg for DVT, XR L foot unrevealing (neg for OM)
Follow arterial US
added low dose Dilaudid for pain (pt has morphine listed as allergy)
# DM-II
# Hypoglycemia, resolved after treatment
Hold sulfonylurea acutely.
s/p D50 for hypoglycemia
Cover with ISS
A1C 6.3%
# Permanent Atrial Fibrillation, Stable.
Continue CHICKEN CLEANER Toprol (with holding parameter) for rate control.
Watchman device in place for stroke risk reduction.
# Factor XI Deficiency- Stable.
Scattered ecchymosis but no evidence of more severe bleeding.
CT head unremarkable as noted above.
# Anxiety / Depression- Stable.
Continue outpatient med regimen.
DVT Prophylaxis: SCDs. Avoid pharmacologic prophylaxis given Factor XI deficiency
Code Status: Full
DW RN
updated on the phone
total time spent 51 min
Anticipated Discharge: 24 - 48 hours
Subjective/Interval History
-
Date of Service: February 06, 2024
Objective Data
-
Labs:
Laboratory Results
02/06/24
04:30
WBC 7.8
Hgb 11.2 L
Hct 35.4 L
Plt Count 178
Sodium 137
Potassium 4.6
Chloride 105
Carbon Dioxide 25
BUN 22 H
Creatinine 0.6 L
Glucose 132 H
Calcium 9.0
Total Bilirubin 0.7
AST 42
ALT 31
Alkaline Phosphatase 115
Vital Signs:
Vital Signs
Temp Pulse Resp BP Pulse Ox
36.6 C 83 17 149/99 96
02/06/24 03:10 02/06/24 08:08 02/06/24 07:54 02/06/24 08:08 02/06/24 07:54
I&O
02/05/24 02/06/24 02/07/24
06:59 06:59 06:59
Intake Total 540 / 540
Output Total 800 / 800 1125 / 1125
Balance -800 / -800 -585 / -585
Review of Systems
-
Musculoskeletal: Reports Other (L foot pain by L lateral ankle wound)
Physical Exam
-
General: Well Developed, Well Nourished, Comfortable and Conversant
HEENT: Normocephalic, Atraumatic, Nose Appears Normal and Ears Appear Normal
Respiratory: Clear to Auscultation, Crackles and Non Labored Respirations; Negative Wheezes or Accessory Resp Muscle Use
Cardiac: Regular Rhythm and S1/S2
GI: Soft, Nontender, Nondistended and Normal Bowel Sounds
Skin: Warm, Dry, Lesions (small wound at L lateral ankle) and Other (ecchymosis of skin around the body)
Neuro: Awake, Alert, Oriented and AO x 3
Psych: Calm and Intact Judgement/Insight
Data Reviewed
-
Diagnostic Radiology: Image personally visualized and interpreted and Report Reviewed by me
CT Scan: Report Reviewed by me
Labs: Labs Reviewed by me
--- NOTE | 2024-02-06 09:05 | W.PN.CD ---
Addendum entered and electronically signed by Dinesh Roman MD 02/06/24 13:51:
I saw and examined the patient.
The [employer]'s note was reviewed and I agree with the note.
Comment:
pBNP is elevated at 3820. Peak trop 3.06
Tmax was admit at 102.
CT c/w severe pneumonia
On exam there are rhonchi and wheezing in much of mid and upper left lung but some in right lung. No crackles.
AFib rate OK
Echo pending
We may give one dose of Lasix tomorrow and watch response. Not clear that he has heart failure but certainly has risk factors for heart failure (age, hx CM, DM, CAD, AFib).
Original Note:
Today's Communication / Plan
-
Echocardiogram today
HRs improved
Impression / Plan
-
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
for a fall at home. Additionally, he has had increasing shortness of breath, cough that is nonproductive, and fever. He is noted to be quite febrile on arrival at 102.1. We are asked to comment on abnormal troponin.
Type II AR due to acute hypoxic respiratory failure
-Denies chest pain
-Peak troponin 3.060
-Echocardiogram today
Pneumonia: Severe, per primary
CAD
-Status post PCI 1996, 2017 with recent angiogram 2020 showing patent stents
-Continue aspirin and beta-sukhdeep, chronically on Repatha.
Permanent atrial fibrillation
-Initially RVR but improved with treatments
-Beta-sukhdeep increased to 37.5mg bid as reports OH with 50mg BID, follow telemetry
-Oral anticoagulation: Watchman
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
-Echocardiogram today.
RBBB chronic
HTN: chronic, mildly elevated
Data Reviewed:
CT PE scan: 02/04/24:
1. SEVERE LEFT LOWER LOBE PNEUMONIA and severe bronchitis in the left lower lobe bronchus and proximal segmental bronchi.
2. Moderate left upper lobe pneumonia.
3. Mild right upper and lower lobe pneumonia.
4. Mild cardiomegaly.
5. Severe calcific atherosclerotic plaque in the coronary arteries.
6. Left atrial appendage occlusion device in place.
7. 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
Physical Exam
Vital Signs/Labs
Vital Signs
Temp Pulse Resp BP Pulse Ox
97.8 F 83 17 149/99 96
02/06/24 03:10 02/06/24 08:08 02/06/24 07:54 02/06/24 08:08 02/06/24 07:54
02/05/24 02/06/24 02/07/24
06:59 06:59 06:59
Actual Weight 78.925 kg 80.649 kg
02/06/24 04:30
02/06/24 04:30
Magnesium 1.8 mg/dl (1.6-2.3) 02/06/24 04:30
02/04/24
09:04
May-O-Jlmmiffliuz Pept 3820
LAB Results
02/03/24 02/04/24 02/04/24
22:18 09:04 15:21
Troponin I 0.147 H* 3.060 H* 1.980 H* D
02/04/24 02/04/24
16:15 21:00
Troponin I Cancelled Cancelled
Physical Exam
Constitutional: No acute distress and Comfortable
EENT: Anicteric and Moist mucous membranes
Cardiovascular: Rhythm/rate is irregular and S1S2 is normal
Respiratory: Respiratory effort normal and Rhonchi Present
GI: Soft, Distention absent, Flat, Non tender and Normal bowel sounds
Neuro/Psych: AO x 3
Other: Skin (warm and dry)
Data Reviewed
-
Date of Service: February 06, 2024
--- NOTE | 2024-02-06 09:27 | CM ---
Spoke with patient's via phone this morning
SNF is not an option; she wants [facility] acute rehab when he is medically stable for discharge
Attending notified via [employer] Text and she will order PM&R consult
Also spoke with Iwona @ [facility]
CM will continue to follow and support disposition needs when medically stable for discharge
--- NOTE | 2024-02-06 11:47 | PN.CDI ---
CDI
- -
CDI:
Physician Documentation Request
Admit Date: 02/03/24 23:55
Dear Doctor Anabella,
Please review the following and provide your response in the progress notes.
Due to a conflict in documentation, please clarify the etiology of the elevated troponins...:
Clinical Indicators:
PN, 02/04
# Troponin elevation likely Non-Ischemic Myocardial Injury
# h/o CAD
#Pt without chest pain
#troponin peaked at 3.06
#EKG shows RBBB with no prior tracing to compare.
Cardiology PN, 02/05
#Type II WI due to acute hypoxic respiratory failure
#-Denies chest pain
#-Peak troponin 3.060
Laboratory Tests
02/03/24 02/04/24 02/04/24
22:18 09:04 15:21
Troponin I 0.147 H* 3.060 H* 1.980 H* D
Based on the above, please clarify in the progress notes, the appropriate diagnosis, if significant, that supports the above abnormalities and additional evaluation, monitoring and/or treatment rendered:
Type II WI
Non - Ischemic Myocardial Injury
Other(please specify)
Use of terms such as suspected, likely, concern for, or probable (associated with a specific diagnosis that is being evaluated, monitored, or treated as if it exists) are acceptable and can be coded in the inpatient setting, when documented at the
time of discharge.
Thank you,
Mariana Mcneil RN BSN CCDS
CDI Specialist
Please contact via tiger text
Please use your independent medical judgment in providing your response.
[2024-02-06] MEDS: NOVOLOG FLEXPEN-LOW RESISTANCE 1 UNITS SC ×2 (13:30→17:34)
[2024-02-06 13:41] LABS: Glucose - Point of Care 171 mg/dl (70-99)
[2024-02-06] MEDS: ZITHROMAX INFUSION 250 IV (14:52)
--- NOTE | 2024-02-06 15:13 | WOUNDNOTE ---
L 2ND TOE DRIED BLOOD
--- NOTE | 2024-02-06 15:14 | WOUNDNOTE ---
R PLANTAR GREAT TOE
--- NOTE | 2024-02-06 15:14 | WOUNDNOTE ---
LEGS AND FEET
--- NOTE | 2024-02-06 15:17 | WOUNDNOTE ---
WON RN note: Patient admitted with Pneumonia and sepsis.
See H&P for complete history. Lives in [place], visiting family.
PMH: A Fib-watchman device, prostate cancer with prostatectomy, Hodgkin's lymphoma-chemo, HTN,NIDDM.
Wound Location and type/assessment: Patient admitted with: L lateral ankle small ulcer, patient states started after sustaining a fall a few wks ago. Suspect wound is arterial vs diabetic. Patient reports wound very painful. + pulses audible with
Doppler, +2 edema in feet/toes, no hair visible on feet. R great toe plantar with dry scab, patient unsure how he got that. L 2nd toe tip with dried blood, suspect trimmed nail too close to skin. Ultrasound negative for DVT. Arterial studies done,
results pending. Neuropathy in both feet, has burning sensation at times patient reports. Patient able to turn self, heels and sacrum intact. Protective foams in use, air pillow under calves. Bruising on arms & L hip.
Appetite: good.
Pressure redistribution devices in place: On [facility] max air bed, can use Accumax if transferred to floor.
Plan: Silicone foam changed on L ankle wound, will order honey gel to start tomorrow. Called [facility] for honey gel and brought to . Heel foams changed. Will confirm orders with hospitalist and updated nurse Jojo.
Updated care plan and will follow as needed.
Note to case management of equipment requested for discharge: TBD.
Recommend follow up at wound care center upon discharge.
[2024-02-06 17:30] LABS: Glucose - Point of Care 189 mg/dl (70-99)
--- NOTE | 2024-02-06 20:15 | PTCARENOTE ---
pt received from previous RN. Pt AAO. at bedside. Pt c/o 11/12 right foot pain, Pt offered ordered pain med, Pt admitted to possibly wanting something for pain later on. pt took Pm meds with water. See nursing shift assessment for head to toe.
call vasquez in reach.
[2024-02-06] MEDS: PAMELOR 25 MG PO (21:39)
[2024-02-06] MEDS: DILAUDID 0.25 MG IV (21:40)
[2024-02-06] MEDS: LOW STRENGTH ASPIRIN 81 MG PO (21:40)
[2024-02-06 21:48] LABS: Glucose - Point of Care 189 mg/dl (70-99)
[2024-02-06] MEDS: ROCEPHIN 1000 MG IV (22:57)
[2024-02-06] MEDS: STERILE WATER FOR INJECTION 10 ML IV (22:57)
[2024-02-07] VITALS (13 sets, daily range): BP systolic 119–152; BP diastolic 64–95; PULSE 78–89; O2SAT 91; BMI 27.6
--- NOTE | 2024-02-07 01:01 | PTCARENOTE ---
Pt wearing CPAP overnight and tolerating well. Pt sats 96%. remains at bedside overnight.
--- NOTE | 2024-02-07 01:50 | PTCARENOTE ---
Pt removed CPAP off of self. Pt was asked if he would like to go back on to the CPAP, Pt refused.
[2024-02-07 05:46] LABS: Hematocrit 39.8 % (39.0-52.0); Hemoglobin 12.5 g/dL (13.0-18.0); Mean Corp Hgb Conc. 31.4 g/dL (33.0-37.0); Mean Corpuscular Hgb 27.4 pg (27.0-31.0); Mean Corpuscular Volume 87.1 fL (80.0-94.0); Mean Platelet Volume 11.2 fL (7.4-10.4); Platelet Count 166 10^3/uL (130-400); Red Blood Cell Count 4.57 10^6/uL (4.70-6.10); Red Cell Dist. Width 19.2 % (11.5-14.5); White Blood Cell Count 10.8 10^3/uL (4.8-10.8)
[2024-02-07 06:08] LABS: Blood Urea Nitrogen 22 mg/dl (9-20); Calcium 9.1 mg/dl (8.4-10.2); Carbon Dioxide 25 mmol/L (22-30); Chloride 105 mmol/L (98-107); Estimated Creatinine Clearance 86 ml/min; Glucose 110 mg/dl (70-99); Potassium 4.3 mmol/L (3.5-5.1); Sodium 138 mmol/L (135-145); eGFR > 60.00
[2024-02-07] MEDS: DUONEB 3 ML INH ×4 (07:28→19:49)
--- NOTE | 2024-02-07 08:32 | CON.MD ---
Documented by User: Blanka Lamb PA-C 02/07/24 19:24
Consultation - Medical
-
Referring Provider: Mariana Marie
Chief Complaint: Weakness status post fall, pneumonia
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
for evaluation s/p fall at home. Patient and his are visiting family in the area - currently reside in [place]. Patient states that he began with cough, congestion symptoms about 3 days ago. He had some fever / chills over the past 24
hours and felt somewhat SOB and increasingly weak. Patient has some gait instability at baseline due to peripheral neuropathy. This evening, he attempted to get OOB to use the bathroom, lost his balance and fell to the floor. He states that he
did strike the back of his head on the floor. He denies any LOC. He denies any chest pain, palpitations, dizziness, etc.
Patient was brought to the ED for evaluation and was noted to have fever to 102.1. Further evaluation reveals left-sided pneumonia / sepsis. reportedly had some cold symptoms prior to the patient. He denies any other sick contacts.
CT PE negative for PE --weaned off O2, -COVID/Flu negative, Urine Legionella/Strep Ag negative, blood culture negative, MRSA screen neg
Past Medical History: ASCVD, lymphoma and DM-II, permanent atrial fibrillation, peripheral neuropathy chemo induced, factor XI deficiency, BPH, anxiety, depression, lymphoma, diabetes 2
Procedure History: PTCA with Stent, T&A (and incidental uvulectomy), Watchman Device, Left Knee Surgery, Excisional Lymph Node Biopsy
Family History: not pertinent
Social History:
Functional Level Premorbidly: ambulates with rolling rollator
Functional Level Currently: Transfers�supervision, ambulated hallways distance x 2 trials each with min assist. Using 3 wheeled rollator, walk 120 feet with min assist x 1. Upper extremity activity, patient donned personal socks and shoes in chair
with set up, lower extremity self-care�max assist, toileting transfer�min assist, bed mobility�supervision,
Tobacco: Vaping (Current every day THC vape use.)
Alcohol: Rarely
Drug use: Medical marijuana
Lives with: Family, lives in [place] but visiting family in [place]. Currently staying in daughter's home in [place] in an in-law suite. Has 2 steps with rail.
24-hour assistance available:
Number of floors: 1
# steps to enter: 2
# steps to second floor:
Potential First floor set up:yes
Driving: No
Occupation: Retired, artist
Allergies:
Allergy/AdvReac Type Severity Reaction Status Date / Time
fentanyl Allergy Unknown Verified 02/03/24 22:16
midazolam [From Versed] Allergy Unknown Verified 02/03/24 22:16
morphine Allergy Rash Verified 02/03/24 22:16
Review of Systems:
Constitutional: (x) Normal _
Eye: (x) Normal _
Ear/Nose/Throat: (x) Normal _
Respiratory: (x) Normal _
Cardiovascular: (x) Normal _
Gastrointestinal: (x) Normal _
Genitourinary: (x) Normal _
Musculoskeletal: (x) weakness status post fall
Integumentary: (x) Normal _
Neurologic: (x) peripheral neuropathy
Psychiatric: (x) Normal _
Endocrine: (x) Normal _
Hematologic/Lymphatic: Lymphoma
Allergic/Immunologic: (x) Normal _
Medications:
Active Current Visit Medication List
Category Date Time Status
Acetaminophen [Tylenol] Med 02/04/24 02:46 Active
650 mg PO Q4HPRN PRN
Aspirin Chewable [Low Strength Aspirin] Med 02/04/24 22:00 Active
81 mg PO HS
Azithromycin 500 mg/250 ml [Zithromax Infusion] Med 02/06/24 14:00 Active
500 mg in 250 ml IV Q24H
Bupropion(24Hr)Extended Releas [WELLBUTRIN XL (24 hour Med 02/04/24 12:14 Active
extended release)]
150 mg PO DAILY
CefTRIAXone [Rocephin] Med 02/04/24 23:00 Active
1,000 mg IV Q24H
Dextrose 50%-Water [Dextrose 50% Syringe] Med 02/04/24 01:13 Active
12.5 grams IV [id number] PRN
Docusate Sodium [Colace] Med 02/04/24 08:00 Active
100 mg PO BID
Flush (0.9% Sodium Chloride) [Flush (Nss)] Med 02/04/24 02:00 Active
See Dose Instructions IV PER PROTOCOL
Glucagon [GlucaGen] Med 02/04/24 01:13 Active
1 mg IM PRN PRN
Guaifenesin [Mucinex] Med 02/04/24 09:00 Active
1,200 mg PO Q12
HYDROmorphone [Dilaudid] Med 02/05/24 09:41 Active
0.25 mg IV Q4HPRN PRN
Insulin Aspart Corrective Low [Novolog Flexpen-Low Med 02/04/24 07:30 Active
Resistance]
See Protocol SC AC
Ipratropium/Albuterol Sulfate [Duoneb] Med 02/04/24 08:21 Active
3 ml INH R Q4HPRN PRN
Ipratropium/Albuterol Sulfate [Duoneb] Med 02/04/24 12:00 Active
3 ml INH R QID
Metoprolol Xl [Toprol Xl] Med 02/05/24 15:02 Active
37.5 mg PO BID
Nortriptyline [Pamelor] Med 02/04/24 22:00 Active
25 mg PO HS
Pantoprazole [Protonix] Med 02/04/24 08:00 Active
40 mg PO DAILY
Polyethylene Glycol Powder [Miralax] Med 02/04/24 01:13 Active
17 grams PO DAILY PRN
Prednisone [Deltasone] Med 02/04/24 09:00 Active
40 mg PO DAILY
Prochlorperazine [Compazine] Med 02/04/24 01:13 Active
5 mg IV Q6HPRN PRN
Sertraline HCl [Zoloft] Med 02/05/24 08:00 Active
87.5 mg PO DAILY
Sterile Water [Sterile Water For Injection] Med 02/04/24 23:00 Active
10 ml IV Q24H
Vitals:
Temp Pulse Resp BP Pulse Ox
97.5 F 76 20 129/82 97
02/07/24 15:27 02/07/24 15:48 02/07/24 15:48 02/07/24 12:00 02/07/24 12:22
Height 5 ft 7 in
Actual Weight 80.649 kg
Body Mass Index (BMI) 27.9
Physical Exam:
General Appearance/Observation: Well-developed, well-nourished individual in no apparent distress.
Pain/Comfort Assessment: Denies
Mood/Affect: Appropriate
Integumentary/Operative Site:
�� Pressure Ulcer Evaluation: absent over heels. Has heel pads on. small wound on lateral aspect of his right ankle since September per - currently with bandage on
��
�� Other Type of Wound: bruises- arms, hands, legs
��
Eyes: Conjunctiva/Lids: normal ��� Pupils: pupils equal round and reactive to light and Accommodation
Ears/Nose/Throat: oral mucosa moist,� throat clear.������������ Lips/Teeth/Gums: normal
Neck: No muscle spasm or tenderness
Cardiovascular: Heart: regular, no murmur
Pulses: dorsalis pedis 2+ bilaterally
Respiratory: Respiratory Effort/Chest Expansion: normal ������� Auscultation: coarse sounds with rhonchi and wheezes bilaterally
Gastrointestinal: abdomen not tender, no distension, normal abdominal bowel sounds
Genitourinary: No Harrison
Extremities: Edema: None Cyanosis: None Trophic changes: None
Neurology Exam:
Orientation: Alert, Oriented to self, Time, Place
Memory: Intact for immediate medical concerns
Higher cortical function
Comprehension: Intact
Two step command: needs repeating
Naming: Intact
Cranial Nerves:
�� CNII: Pupillary light reflex: Intact��� Visual Field: Intact
�� CN III, IV, : Extraocular muscles: Intact
�� CN V: Facial Sensation at Forehead: Intact, Maxilla: Intact, Mandible: Intact
�� CN VII: Facial movement: Symmetric
�� CN VIII: Hearing: Normal
�� CN IX/X: Speech & swallow: Normal, Position of Uvula: Midline
�� CN XI: Shoulder shrug: Symmetric
�� CN XII: Tongue protrusion: Midline
Sensory:
�� Light touch: hypoesthesia in medial aspects of bilateral legs, no sensation in lateral aspects of legs, faint sensation in bilateral feet, and hands
Reflexes:
�� Biceps: absent bilaterally
�� Brachioradialis: absent bilaterally
�� Triceps: absent bilaterally
�� Patellar: absent bilaterally
�� Achilles: absent bilaterally
�� Nataliya: Negative bilaterally
Cerebellar: Dysmetria/Ataxia: None
Musculoskeletal:
Motor: (Manual muscle scale 0-5)
Muscle SA EF WE EE FF FA HF KE DF EHL PF
Right� 4 4 4 4 4- 4- 4 4 4
Left 4 4 4 4 4- 4- 4 4 4
Tone: Normal in all extremities
Range of Motion: Passively within normal limits in all extremities
Lab Results
Labs
WBC 10.8 10^3/uL (4.8-10.8) 02/07/24 05:31
RBC 4.57 10^6/uL (4.70-6.10) L 02/07/24 05:31
Hgb 12.5 g/dL (13.0-18.0) L 02/07/24 05:31
Hct 39.8 % (39.0-52.0) 02/07/24 05:31
MCV 87.1 fL (80.0-94.0) 02/07/24 05:31
MCH 27.4 pg (27.0-31.0) 02/07/24 05:31
MCHC 31.4 g/dL (33.0-37.0) L 02/07/24 05:31
RDW 19.2 % (11.5-14.5) H 02/07/24 05:31
Plt Count 166 10^3/uL (130-400) 02/07/24 05:31
MPV 11.2 fL (7.4-10.4) H 02/07/24 05:31
Abs Immat Gran (auto) 0.1 10^3/uL (0-0.05) H 02/06/24 04:30
Absolute Neuts (auto) 6.7 10^3/uL (1.4-6.5) H 02/06/24 04:30
Absolute Lymphs (auto) 0.5 10^3/uL (1.2-3.4) L 02/06/24 04:30
Absolute Monos (auto) 0.6 10^3/uL (0.1-0.6) 02/06/24 04:30
Absolute Eos (auto) 0.0 10^3/uL (0-0.7) 02/06/24 04:30
Absolute Basos (auto) 0.0 10^3/uL (0-0.2) 02/06/24 04:30
Immature Gran % 0.8 % (0-0.5) H 02/06/24 04:30
Neutrophils % 85.6 % (42.2-75.2) H 02/06/24 04:30
Lymphocytes % 6.2 % (20.5-51.1) L 02/06/24 04:30
Monocytes % 7.1 % (1.7-9.3) 02/06/24 04:30
Eosinophils % 0.0 % (0-6) 02/06/24 04:30
Basophils % 0.3 % (0-2) 02/06/24 04:30
Nucleated RBC % 0 % (-) 02/06/24 04:30
Sodium 138 mmol/L (135-145) 02/07/24 05:31
Potassium 4.3 mmol/L (3.5-5.1) 02/07/24 05:31
Chloride 105 mmol/L (98-107) 02/07/24 05:31
Carbon Dioxide 25 mmol/L (22-30) 02/07/24 05:31
BUN 22 mg/dl (9-20) H 02/07/24 05:31
Creatinine 0.6 mg/dL (0.7-1.3) L 02/07/24 05:31
Estimated Creat Clear 86 ml/min 02/07/24 05:31
eGFR > 60.00 02/07/24 05:31
Glucose 110 mg/dl (70-99) H 02/07/24 05:31
Hemoglobin A1c 6.3 % (4.0-5.6) H 02/04/24 05:47
Lactic Acid 1.4 mmol/L (0.7-2.0) 02/04/24 02:10
Calcium 9.1 mg/dl (8.4-10.2) 02/07/24 05:31
Magnesium 1.8 mg/dl (1.6-2.3) 02/06/24 04:30
Total Bilirubin 0.7 mg/dl (0.2-1.3) 02/06/24 04:30
Direct Bilirubin 0.6 mg/dl (0.0-0.4) H 02/06/24 04:30
AST 42 U/L (17-59) 02/06/24 04:30
ALT 31 U/L (0-50) 02/06/24 04:30
Alkaline Phosphatase 115 U/L (38-126) 02/06/24 04:30
Troponin I Cancelled 02/04/24 21:00
Vqy-Q-Cjfswloouep Pept 3820 pg/ml 02/04/24 09:04
Total Protein 5.4 g/dl (6.3-8.2) L 02/06/24 04:30
Albumin 3.0 g/dl (3.5-5.0) L 02/06/24 04:30
Procalcitonin 13.27 ng/ml (0.0-0.25) H* 02/04/24 12:13
Urine Color Yellow 02/03/24 22:18
Urine Clarity Clear (Clear) 02/03/24 22:18
Urine pH 5.0 (5.0-9.0) 02/03/24 22:18
Ur Specific [place] 1.025 (<1.030) 02/03/24 22:18
Urine Ketones Negative (Negative) 02/03/24 22:18
Ur Occult Blood Reflex 2+ (Negative) A 02/03/24 22:18
Urine Nitrite (Reflex) Negative (Negative) 02/03/24 22:18
Urine Bilirubin Negative (Negative) 02/03/24 22:18
Urine Urobilinogen 2+ (Neg - 1+) A 02/03/24 22:18
Leukocyte Esterase Rfl Negative (Negative) 02/03/24 22:18
Urine RBC 7-10 /HPF (0-2) A 02/03/24 22:18
Urine WBC (Reflex) 3-5 /HPF (0-5) 02/03/24 22:18
Urine Bacteria (Reflex) Few (Negative) A 02/03/24 22:18
Hyaline Casts 11-15 /LPF (0-2) 02/03/24 22:18
Urine Glucose Negative (Negative) 02/03/24 22:18
Urine Albumin (Reflex) 1+ (Neg - Trace) A 02/03/24 22:18
SARS-CoV-2 Antigen Negative (Negative) 02/03/24 22:37
POC Glucose 189 mg/dl (70-99) H 02/06/24 21:36
�
Diagnostic Results: as per HPI
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
s/p fall at home. H/o multiple falls due to peripheral neuropathy. Patient also with shortness of breath and wheezing. Was found to have pneumonia and is being treated with IV antibiotics . Patient in PT/OT for endurance and strengthening due to
weakness and deconditioning
Plan
PT/OT to increase independence with ADLs, improve balance, coordination, endurance, strength, mobility, community reintegration, decreased burden of care on others and family education.
Deconditioning: Secondary to pneumonia and peripheral neuropathy. Continue PT/OT
Pneumonia: Ceftriaxone 1000 mg IV every 24 hours, azithromycin infusion, 500 mg in 250 mL IV every 24 hours ,albuterol/Ipratropium [id number] qid. Mucinex 1200 mg every 12, prednisone 40 mg daily
Weakness status post fall and peripheral neuropathy: PT/OT
Peripheral neuropathy: Chemo induced. Patient with gait instability at baseline. Nortriptyline 25 mg at bedtime
HTN: Metoprolol succinate 37.5 mg p.o. twice daily
Coronary artery disease : Aspirin, statin, beta-sukhdeep .Troponin elevation likely Non-Ischemic Myocardial Injury/h/o CAD--troponin peaked at 3.06--EKG shows RBBB with no prior tracing to compare--Continue current CV med regimen including daily
ASA--Toprol increased by card--Follow update echo--Cardiology on board
Permanent atrial fibrillation:Stable--Continue [employer] Toprol (with holding parameter) for rate control--Watchman device in place for stroke risk reduction.
DM II: Accu-Cheks, Hypoglycemia, resolved after treatment--Hold sulfonylurea acutely--s/p D50 for hypoglycemia--A1C 6.3%
Psych: Psychology consult.� Monitor mood, Wellbutrin XL 24-hour extended release 150 daily, Zoloft 87.5 daily
Skin: monitor for pressure sores/rashes/lesions. Bruises in arms, hands, legs. Small wound on lateral left ankle
Factor XI Deficiency- Stable--Scattered ecchymosis but no evidence of more severe bleeding--CT head unremarkable as noted above.
Pain: acetaminophen , Dilaudid 0.25 mg IV every 4 as needed
Bowel: MiraLAX, Senokot
Nausea: Compazine 5 mg IV every 6 as needed
Bladder: Time void, PVRs, PRN straight cath.
GI Prophylaxis: Pantoprazole
DVT Prophylaxis: Mechanical. Avoid pharmacologic prophylaxis given Factor XI deficiency
Pulmonary: Incentive spirometry
Safety: Continue to reinforce assistance with all transfers.
Code Status:� Full code
Dispo (date/plan/equipment needs): Home with family care.� Social history reviewed.
Functional and Medical Goals: Modified Independent with ADL�s, ambulation, transfers
Discharge Destination: Acute inpatient rehabilitation
Summary of recommendations: Patient with ambulatory dysfunction secondary to peripheral neuropathy, s/p multiple falls and now with weakness and deconditioning due to pneumonia would benefit from Acute inpatient rehabilitation to increase
independence with ADLs, improve balance,endurance, strength, mobility, and community reintegration back to [place] where he resides.
Ambulatory dysfunction /deconditioning: Secondary to pneumonia and peripheral neuropathy. Continue PT/OT
Pneumonia: Ceftriaxone 1000 mg IV every 24 hours, azithromycin infusion, 500 mg and 250 mL IV every 24 hours ,albuterol/Ipratropium [id number] qid. Mucinex 1200 mg every 12, prednisone 40 mg daily
Weakness status post fall: PT/OT
Peripheral neuropathy: Chemo induced. Patient with gait instability at baseline. Nortriptyline 25 mg at bedtime
HTN: Metoprolol succinate 37.5 mg p.o. twice daily
Factor XI Deficiency- Stable--Scattered ecchymosis but no evidence of more severe bleeding--CT head unremarkable as noted above.
VT Prophylaxis: Mechanical. Avoid pharmacologic prophylaxis given Factor XI deficiency
Pulmonary: Incentive spirometry
Pain: acetaminophen , Dilaudid 0.25 mg IV every 4 as needed. Convert to PO as tolerated
Bowel: MiraLAX, Senokot
Nausea: Compazine 5 mg IV every 6 as needed
Bladder: Time void, PVRs, PRN straight cath.
GI Prophylaxis: Pantoprazole
Thank you for allowing me to care for your patient. Please contact me with any questions or concerns.
This note was dictated using a voice recognition system. Please excuse any typographical errors from spindle frame carver. If you believe there are any discrepancies, please notify our office.

Documented by User: Refugio Connolly MD 02/08/24 00:19
Consultation - Medical
-
Referring Provider: Mariana Marie
Chief Complaint: Weakness status post fall, pneumonia
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
for evaluation s/p fall at home. Patient and his are visiting family in the area - currently reside in [place]. Patient states that he began with cough, congestion symptoms about 3 days ago. He had some fever / chills over the past 24
hours and felt somewhat SOB and increasingly weak. Patient has some gait instability at baseline due to peripheral neuropathy. This evening, he attempted to get OOB to use the bathroom, lost his balance and fell to the floor. He states that he
did strike the back of his head on the floor. He denies any LOC. He denies any chest pain, palpitations, dizziness, etc.
Patient was brought to the ED for evaluation and was noted to have fever to 102.1. Further evaluation reveals left-sided pneumonia / sepsis. reportedly had some cold symptoms prior to the patient. He denies any other sick contacts.
CT PE negative for PE --weaned off O2, -COVID/Flu negative, Urine Legionella/Strep Ag negative, blood culture negative, MRSA screen neg
Past Medical History: ASCVD, lymphoma and DM-II, permanent atrial fibrillation, peripheral neuropathy chemo induced, factor XI deficiency, BPH, anxiety, depression, lymphoma, diabetes 2
Procedure History: PTCA with Stent, T&A (and incidental uvulectomy), Watchman Device, Left Knee Surgery, Excisional Lymph Node Biopsy
Family History: not pertinent
Social History:
Functional Level Premorbidly: ambulates with rolling rollator
Functional Level Currently: Transfers�supervision, ambulated hallways distance x 2 trials each with min assist. Using 3 wheeled rollator, walk 120 feet with min assist x 1. Upper extremity activity, patient donned personal socks and shoes in chair
with set up, lower extremity self-care�max assist, toileting transfer�min assist, bed mobility�supervision,
Tobacco: Vaping (Current every day THC vape use.)
Alcohol: Rarely
Drug use: Medical marijuana
Lives with: Family, lives in [place] but visiting family in [place]. Currently staying in daughter's home in [place] in an in-law suite. Has 2 steps with rail.
24-hour assistance available: Yes
Number of floors: 1
# steps to enter: 2
# steps to second floor:
Potential First floor set up:yes
Driving: No
Occupation: Retired, artist
Allergies:
Allergy/AdvReac Type Severity Reaction Status Date / Time
fentanyl Allergy Unknown Verified 02/03/24 22:16
midazolam [From Versed] Allergy Unknown Verified 02/03/24 22:16
morphine Allergy Rash Verified 02/03/24 22:16
Review of Systems:
Constitutional: (x) abNormal _fatigue
Eye: (x) Normal _
Ear/Nose/Throat: (x) Normal _
Respiratory: (x) Normal _
Cardiovascular: (x) abNormal _poor vasculature, cool extremities
Gastrointestinal: (x) Normal _
Genitourinary: (x) Normal _
Musculoskeletal: (x) weakness status post fall
Integumentary: (x) Normal _
Neurologic: (x) peripheral neuropathy
Psychiatric: (x) Normal _
Endocrine: (x) Normal _
Hematologic/Lymphatic: Lymphoma
Allergic/Immunologic: (x) Normal _
Medications:
Active Current Visit Medication List
Category Date Time Status
Acetaminophen [Tylenol] Med 02/04/24 02:46 Active
650 mg PO Q4HPRN PRN
Aspirin Chewable [Low Strength Aspirin] Med 02/04/24 22:00 Active
81 mg PO HS
Azithromycin 500 mg/250 ml [Zithromax Infusion] Med 02/06/24 14:00 Active
500 mg in 250 ml IV Q24H
Bupropion(24Hr)Extended Releas [WELLBUTRIN XL (24 hour Med 02/04/24 12:14 Active
extended release)]
150 mg PO DAILY
CefTRIAXone [Rocephin] Med 02/04/24 23:00 Active
1,000 mg IV Q24H
Dextrose 50%-Water [Dextrose 50% Syringe] Med 02/04/24 01:13 Active
12.5 grams IV [id number] PRN
Docusate Sodium [Colace] Med 02/04/24 08:00 Active
100 mg PO BID
Flush (0.9% Sodium Chloride) [Flush (Nss)] Med 02/04/24 02:00 Active
See Dose Instructions IV PER PROTOCOL
Glucagon [GlucaGen] Med 02/04/24 01:13 Active
1 mg IM PRN PRN
Guaifenesin [Mucinex] Med 02/04/24 09:00 Active
1,200 mg PO Q12
HYDROmorphone [Dilaudid] Med 02/05/24 09:41 Active
0.25 mg IV Q4HPRN PRN
Insulin Aspart Corrective Low [Novolog Flexpen-Low Med 02/04/24 07:30 Active
Resistance]
See Protocol SC AC
Ipratropium/Albuterol Sulfate [Duoneb] Med 02/04/24 08:21 Active
3 ml INH R Q4HPRN PRN
Ipratropium/Albuterol Sulfate [Duoneb] Med 02/04/24 12:00 Active
3 ml INH R QID
Metoprolol Xl [Toprol Xl] Med 02/05/24 15:02 Active
37.5 mg PO BID
Nortriptyline [Pamelor] Med 02/04/24 22:00 Active
25 mg PO HS
Pantoprazole [Protonix] Med 02/04/24 08:00 Active
40 mg PO DAILY
Polyethylene Glycol Powder [Miralax] Med 02/04/24 01:13 Active
17 grams PO DAILY PRN
Prednisone [Deltasone] Med 02/04/24 09:00 Active
40 mg PO DAILY
Prochlorperazine [Compazine] Med 02/04/24 01:13 Active
5 mg IV Q6HPRN PRN
Sertraline HCl [Zoloft] Med 02/05/24 08:00 Active
87.5 mg PO DAILY
Sterile Water [Sterile Water For Injection] Med 02/04/24 23:00 Active
10 ml IV Q24H
Vitals:
Temp Pulse Resp BP Pulse Ox
97.5 F 76 20 129/82 97
02/07/24 15:27 02/07/24 15:48 02/07/24 15:48 02/07/24 12:00 02/07/24 12:22
Height 5 ft 7 in
Actual Weight 80.649 kg
Body Mass Index (BMI) 27.9
Physical Exam:
General Appearance/Observation: Well-developed, well-nourished male in no apparent distress.
Pain/Comfort Assessment: Denies
Mood/Affect: Appropriate
Integumentary/Operative Site:
�� Pressure Ulcer Evaluation: absent over heels. Has heel pads on. small wound on lateral aspect of his right ankle since September per - currently with bandage on
���� Other Type of Wound: bruises- arms, hands, legs
��
Eyes: Conjunctiva/Lids: normal ��� Pupils: pupils equal round and reactive to light and Accommodation
Ears/Nose/Throat: oral mucosa moist,� throat clear.������������ Lips/Teeth/Gums: normal
Neck: No muscle spasm or tenderness
Cardiovascular: Heart: regular, no murmur
Pulses: dorsalis pedis 2+ bilaterally
Respiratory: Respiratory Effort/Chest Expansion: normal ������� Auscultation: coarse sounds with rhonchi and wheezes bilaterally
Gastrointestinal: abdomen not tender, no distension, normal abdominal bowel sounds
Genitourinary: No Harrison
Extremities: Edema: moderate B/L LE edema, pitting Cyanosis: purplish blue bilateral feet Trophic changes: Bilateral
Neurology Exam:
Orientation: Alert, Oriented to self, Time, Place
Memory: Intact for immediate medical concerns
Higher cortical function
Comprehension: Intact
Two step command: needs repeating
Naming: Intact
Cranial Nerves:
�� CNII: Pupillary light reflex: Intact��� Visual Field: Intact
�� CN III, IV, : Extraocular muscles: Intact
�� CN V: Facial Sensation at Forehead: Intact, Maxilla: Intact, Mandible: Intact
�� CN VII: Facial movement: Symmetric
�� CN VIII: Hearing: Normal
�� CN IX/X: Speech & swallow: Normal, Position of Uvula: Midline
�� CN XI: Shoulder shrug: Symmetric
�� CN XII: Tongue protrusion: Midline
Sensory:
�� Light touch: hypoesthesia in medial aspects of bilateral legs, no sensation in lateral aspects of legs, faint sensation in bilateral feet, and hands
Reflexes:
�� Biceps: absent bilaterally
�� Brachioradialis: absent bilaterally
�� Triceps: absent bilaterally
�� Patellar: absent bilaterally
�� Achilles: absent bilaterally
�� Nataliya: Negative bilaterally
Cerebellar: Dysmetria/Ataxia: None
Musculoskeletal: Motor: (Manual muscle scale 0-5)
Muscle SA EF WE EE FF FA HF KE DF EHL PF
Right� 2+ 4 4 4 3+ 4 3+ 4 4
Left 2+ 4 4 4 3+ 4 3+ 4 4
Tone: Normal in all extremities
Range of Motion: Passively within normal limits in all extremities
Lab Results
Labs
WBC 10.8 10^3/uL (4.8-10.8) 02/07/24 05:31
RBC 4.57 10^6/uL (4.70-6.10) L 02/07/24 05:31
Hgb 12.5 g/dL (13.0-18.0) L 02/07/24 05:31
Hct 39.8 % (39.0-52.0) 02/07/24 05:31
MCV 87.1 fL (80.0-94.0) 02/07/24 05:31
MCH 27.4 pg (27.0-31.0) 02/07/24 05:31
MCHC 31.4 g/dL (33.0-37.0) L 02/07/24 05:31
RDW 19.2 % (11.5-14.5) H 02/07/24 05:31
Plt Count 166 10^3/uL (130-400) 02/07/24 05:31
MPV 11.2 fL (7.4-10.4) H 02/07/24 05:31
Abs Immat Gran (auto) 0.1 10^3/uL (0-0.05) H 02/06/24 04:30
Absolute Neuts (auto) 6.7 10^3/uL (1.4-6.5) H 02/06/24 04:30
Absolute Lymphs (auto) 0.5 10^3/uL (1.2-3.4) L 02/06/24 04:30
Absolute Monos (auto) 0.6 10^3/uL (0.1-0.6) 02/06/24 04:30
Absolute Eos (auto) 0.0 10^3/uL (0-0.7) 02/06/24 04:30
Absolute Basos (auto) 0.0 10^3/uL (0-0.2) 02/06/24 04:30
Immature Gran % 0.8 % (0-0.5) H 02/06/24 04:30
Neutrophils % 85.6 % (42.2-75.2) H 02/06/24 04:30
Lymphocytes % 6.2 % (20.5-51.1) L 02/06/24 04:30
Monocytes % 7.1 % (1.7-9.3) 02/06/24 04:30
Eosinophils % 0.0 % (0-6) 02/06/24 04:30
Basophils % 0.3 % (0-2) 02/06/24 04:30
Nucleated RBC % 0 % (-) 02/06/24 04:30
Sodium 138 mmol/L (135-145) 02/07/24 05:31
Potassium 4.3 mmol/L (3.5-5.1) 02/07/24 05:31
Chloride 105 mmol/L (98-107) 02/07/24 05:31
Carbon Dioxide 25 mmol/L (22-30) 02/07/24 05:31
BUN 22 mg/dl (9-20) H 02/07/24 05:31
Creatinine 0.6 mg/dL (0.7-1.3) L 02/07/24 05:31
Estimated Creat Clear 86 ml/min 02/07/24 05:31
eGFR > 60.00 02/07/24 05:31
Glucose 110 mg/dl (70-99) H 02/07/24 05:31
Hemoglobin A1c 6.3 % (4.0-5.6) H 02/04/24 05:47
Lactic Acid 1.4 mmol/L (0.7-2.0) 02/04/24 02:10
Calcium 9.1 mg/dl (8.4-10.2) 02/07/24 05:31
Magnesium 1.8 mg/dl (1.6-2.3) 02/06/24 04:30
Total Bilirubin 0.7 mg/dl (0.2-1.3) 02/06/24 04:30
Direct Bilirubin 0.6 mg/dl (0.0-0.4) H 02/06/24 04:30
AST 42 U/L (17-59) 02/06/24 04:30
ALT 31 U/L (0-50) 02/06/24 04:30
Alkaline Phosphatase 115 U/L (38-126) 02/06/24 04:30
Troponin I Cancelled 02/04/24 21:00
Kim-P-Rfliiplzhwu Pept 3820 pg/ml 02/04/24 09:04
Total Protein 5.4 g/dl (6.3-8.2) L 02/06/24 04:30
Albumin 3.0 g/dl (3.5-5.0) L 02/06/24 04:30
Procalcitonin 13.27 ng/ml (0.0-0.25) H* 02/04/24 12:13
Urine Color Yellow 02/03/24 22:18
Urine Clarity Clear (Clear) 02/03/24 22:18
Urine pH 5.0 (5.0-9.0) 02/03/24 22:18
Ur Specific [place] 1.025 (<1.030) 02/03/24 22:18
Urine Ketones Negative (Negative) 02/03/24 22:18
Ur Occult Blood Reflex 2+ (Negative) A 02/03/24 22:18
Urine Nitrite (Reflex) Negative (Negative) 02/03/24 22:18
Urine Bilirubin Negative (Negative) 02/03/24 22:18
Urine Urobilinogen 2+ (Neg - 1+) A 02/03/24 22:18
Leukocyte Esterase Rfl Negative (Negative) 02/03/24 22:18
Urine RBC 7-10 /HPF (0-2) A 02/03/24 22:18
Urine WBC (Reflex) 3-5 /HPF (0-5) 02/03/24 22:18
Urine Bacteria (Reflex) Few (Negative) A 02/03/24 22:18
Hyaline Casts 11-15 /LPF (0-2) 02/03/24 22:18
Urine Glucose Negative (Negative) 02/03/24 22:18
Urine Albumin (Reflex) 1+ (Neg - Trace) A 02/03/24 22:18
SARS-CoV-2 Antigen Negative (Negative) 02/03/24 22:37
POC Glucose 189 mg/dl (70-99) H 02/06/24 21:36
Diagnostic Results: as per HPI
Assessment
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 H/o
multiple falls due to peripheral neuropathy. Patient also with shortness of breath and wheezing. Was found to have pneumonia and is being treated with IV antibiotics . Patient in PT/OT for endurance and strengthening due to weakness and
deconditioning
Plan
PT/OT to increase independence with ADLs, improve balance, coordination, endurance, strength, mobility, community reintegration, decreased burden of care on others and family education.
Deconditioning: Secondary to pneumonia and peripheral neuropathy. Continue PT/OT
Pneumonia: Ceftriaxone 1000 mg IV every 24 hours, azithromycin infusion, 500 mg in 250 mL IV every 24 hours ,albuterol/Ipratropium [id number] qid. Mucinex 1200 mg every 12, prednisone 40 mg daily
Weakness status post fall and peripheral neuropathy: PT/OT
Peripheral neuropathy: Chemo induced. Patient with gait instability at baseline. Nortriptyline 25 mg at bedtime
HTN: Metoprolol succinate 37.5 mg p.o. twice daily
Coronary artery disease : Aspirin, statin, beta-sukhdeep .Troponin elevation likely Non-Ischemic Myocardial Injury/h/o CAD--troponin peaked at 3.06--EKG shows RBBB with no prior tracing to compare--Continue current CV med regimen including daily
ASA--Toprol increased by card--Follow update echo--Cardiology on board
Permanent atrial fibrillation:Stable--Continue [employer]ATE Toprol (with holding parameter) for rate control--Watchman device in place for stroke risk reduction.
DM II: Accu-Cheks, Hypoglycemia, resolved after treatment--Hold sulfonylurea acutely--s/p D50 for hypoglycemia--A1C 6.3%
Psych: Psychology consult.� Monitor mood, Wellbutrin XL 24-hour extended release 150 daily, Zoloft 87.5 daily
Skin: monitor for pressure sores/rashes/lesions. Bruises in arms, hands, legs. Small wound on lateral left ankle
Factor XI Deficiency- Stable--Scattered ecchymosis but no evidence of more severe bleeding--CT head unremarkable as noted above.
Pain: acetaminophen , Dilaudid 0.25 mg IV every 4 as needed
Bowel: MiraLAX, Senokot
Nausea: Compazine 5 mg IV every 6 as needed
Bladder: Time void, PVRs, PRN straight cath.
GI Prophylaxis: Pantoprazole
DVT Prophylaxis: Mechanical. Avoid pharmacologic prophylaxis given Factor XI deficiency
Pulmonary: Incentive spirometry
Safety: Continue to reinforce assistance with all transfers.
Code Status:� Full code
Dispo (date/plan/equipment needs): Home with family care.� Social history reviewed.
Functional and Medical Goals: Modified Independent with ADL�s, ambulation, transfers
Discharge Destination: Acute inpatient rehabilitation
Summary of recommendations: Patient with ambulatory dysfunction secondary to peripheral neuropathy, s/p multiple falls and now with weakness and deconditioning due to pneumonia would benefit from Acute inpatient rehabilitation to increase
independence with ADLs, improve balance,endurance, strength, mobility, and community reintegration back to [place] where he resides.
Ambulatory dysfunction /deconditioning: Secondary to pneumonia and peripheral neuropathy. Continue PT/OT
Pneumonia: Ceftriaxone 1000 mg IV every 24 hours, azithromycin infusion, 500 mg and 250 mL IV every 24 hours ,albuterol/Ipratropium [id number] qid. Mucinex 1200 mg every 12, prednisone 40 mg daily
Weakness status post fall: PT/OT
Peripheral neuropathy: Chemo induced. Patient with gait instability at baseline. Nortriptyline 25 mg at bedtime
HTN: Metoprolol succinate 37.5 mg p.o. twice daily
Factor XI Deficiency- Stable--Scattered ecchymosis but no evidence of more severe bleeding--CT head unremarkable as noted above.
VT Prophylaxis: Mechanical. Avoid pharmacologic prophylaxis given Factor XI deficiency
Pulmonary: Incentive spirometry
Pain: acetaminophen , Dilaudid 0.25 mg IV every 4 as needed. Convert to PO as tolerated
Bowel: MiraLAX, Senokot
Nausea: Compazine 5 mg IV every 6 as needed
Bladder: Time void, PVRs, PRN straight cath.
GI Prophylaxis: Pantoprazole
Thank you for allowing me to care for your patient. Please contact me with any questions or concerns.
Attending Statement:
I saw and examined the patient today.� Reviewed care plan with patient, therapy, nursing, and physician nutrition services assistant.� I agree with the above subjective and physical exam, and plan as documented by LILLIAM Lamb with adjustments made as necessary.
--- NOTE | 2024-02-07 08:37 | W.PN.CD ---
Today's Communication / Plan
-
-
-
Cardiology will sign off
Please call with questions
Impression / Plan
-
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
for a fall at home. Additionally, he has had increasing shortness of breath, cough that is nonproductive, and fever. He is noted to be quite febrile on arrival at 102.1. We are asked to comment on abnormal troponin.
Elevated troponin
- More likely nonischemic myocardial injury (given lack of wall motion changes, lack of CP, lack of EKG changes) than a type II [place] due to acute hypoxic respiratory failure
- Peak troponin 3.060
- Echocardiogram => No wall motion abnormality, LVEFF 50-55%, mod MR, mod LAE,
Pneumonia: Severe, per primary
- Elevated pBNP is of uncertain etiology
- If he does not continue to improve we should diurese and watch response
CAD
-Status post PCI 2017 with recent angiogram 2020 showing patent stents
-Continue aspirin and beta-sukhdeep, chronically on Repatha.
Permanent atrial fibrillation
-Initially RVR but improved with treatments
-Beta-sukhdeep increased to 37.5mg bid as reports OH with 50mg BID, follow telemetry
-Oral anticoagulation: Watchman
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
RBBB chronic
HTN: chronic, mildly elevated
Subjective:
Feeling better. No PND/orthopnea. Mild LLE edema
Data:
CT PE scan: 02/04/24:
1. SEVERE LEFT LOWER LOBE PNEUMONIA and severe bronchitis in the left lower lobe bronchus and proximal segmental bronchi.
2. Moderate left upper lobe pneumonia.
3. Mild right upper and lower lobe pneumonia.
4. Mild cardiomegaly.
5. Severe calcific atherosclerotic plaque in the coronary arteries.
6. Left atrial appendage occlusion device in place.
7. 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
Physical Exam
Vital Signs/Labs
Vital Signs
Temp Pulse Resp BP Pulse Ox
97.4 F 80 18 131/76 93
02/07/24 03:03 02/07/24 07:29 02/07/24 07:29 02/07/24 04:00 02/07/24 07:29
02/06/24 02/07/24 02/08/24
06:59 06:59 06:59
Actual Weight 80.649 kg
02/07/24 05:31
02/07/24 05:31
Magnesium 1.8 mg/dl (1.6-2.3) 02/06/24 04:30
02/04/24
09:04
Yca-I-Fxohznifjcs Pept 3820
LAB Results
02/04/24 02/04/24 02/04/24
09:04 15:21 16:15
Troponin I 3.060 H* 1.980 H* D Cancelled
02/04/24
21:00
Troponin I Cancelled
Physical Exam
Constitutional: No acute distress
Cardiovascular: Rhythm/rate is irregular and Rub absent
Respiratory: Respiratory effort normal, Wheeze Absent, Crackles Absent, Rhonchi Present (but much less than yesterday) and Other
GI: Soft and Distention absent
Neuro/Psych: Alert
Data Reviewed
-
Date of Service: February 07, 2024
[2024-02-07] MEDS: ZOLOFT 87.5 MG PO (09:10)
[2024-02-07] MEDS: MUCINEX 1200 MG PO ×2 (09:10→19:39)
[2024-02-07] MEDS: WELLBUTRIN XL (24 hour extended release) 150 MG PO (09:10)
[2024-02-07] MEDS: DELTASONE 40 MG PO (09:11)
[2024-02-07] MEDS: TOPROL XL 37.5 MG PO ×2 (09:13→19:41)
[2024-02-07] MEDS: COLACE 100 MG PO ×2 (09:13→19:40)
[2024-02-07] MEDS: PROTONIX 40 MG PO (09:13)
[2024-02-07 09:31] LABS: Glucose - Point of Care 85 mg/dl (70-99)
--- NOTE | 2024-02-07 09:37 | CM ---
Patient seen at bedside with physician and patient . Patient confirmed plan is Acute Rehab only and PM&R pending. Patient here from [place] to visit patient daughter and new baby born here at . CM sent tt to Liaison at [facility] and await review.
CM will continue to follow for discharge planning needs.
Plan; [facility]; review pending.
[2024-02-07] MEDS: NOVOLOG FLEXPEN-LOW RESISTANCE SC ×2 (09:52→13:56)
--- NOTE | 2024-02-07 09:59 | W.PN.HOSP.TC ---
Today's Communication/Plan
-
PT/OT
cleared by cards
Assessment / Plan
Assessment / Plan
HPI: 83 yo M with PMH significant for ASCVD, lymphoma and DM-II who presented to ED for evaluation s/p fall at home. Patient and his are visiting family in the area - currently reside in [place].
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 He had some fever / chills over the past 24 hours and felt somewhat SOB and increasingly weak.
Patient has some gait instability at baseline due to peripheral neuropathy. In the evening, he attempted to get OOB to use the bathroom, lost his balance and fell to the floor. He states that he did strike the back of his head on the floor. He
denied to LOC. He denies any chest pain, palpitations, dizziness, etc.
Patient was brought to the ED for evaluation and was noted to have fever to 102.1. Further evaluation reveals left-sided pneumonia / sepsis.
reportedly had some cold symptoms prior to the patient. He denies any other sick contacts.
severe sepsis POA due to CAP/Left Pneumonia-- Patient presented with fever, tachycardia, tachypnea and CXR showing L multilobar pneumonia with Acute Hypoxemic Respiratory Insufficiency--Resolved lactic acidosis--CT PE negative for PE --weaned off
O2, he is not on home O2--COVID/Flu negative, Urine Legionella/Strep Ag negative, blood culture negative, MRSA screen neg--Cont Ceftriaxone, change doxycycline to azithromycin--Cont DuoNebs ATC and PRN--Added prednisone 40 mg x5 days for mild
wheezing (resolved)--Added Mucinex and acapella--Tylenol for fever/mild pain
Troponin elevation likely Non-Ischemic Myocardial Injury/h/o CAD--troponin peaked at 3.06--EKG shows RBBB with no prior tracing to compare--Continue current CV med regimen including daily ASA--Toprol increased by card--Follow update echo--Cardiology
on board
Fall at Home likely due Peripheral Neuropathy secondary to Chemo--Chronic Gait Dysfunction secondary to the above--CT head without acute findings this evening--Suspect increased weakness secondary to infection/sepsis.
Treat underlying infection as noted above--Continue nortriptyline--PT/OT rec acute vs SNF, would like [facility]--Physiatry consulted
L lateral ankle pain by L lateral malleolus wound site, like due to neuropathy--Wound care CS--Neg for DVT, XR L foot unrevealing (neg for OM)--Follow arterial US--added low dose Dilaudid for pain (pt has morphine listed as allergy)--? need neuro
eval as oupt
DM-II--Hypoglycemia, resolved after treatment--Hold sulfonylurea acutely--s/p D50 for hypoglycemia--A1C 6.3%
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
Factor XI Deficiency- Stable--Scattered ecchymosis but no evidence of more severe bleeding--CT head unremarkable as noted above.
Anxiety/Depression- Stable--Continue outpatient med regimen.
DVT Prophylaxis: SCDs. Avoid pharmacologic prophylaxis given Factor XI deficiency
Code Status: Full
Anticipated Discharge: > 48 hours
Subjective/Interval History
-
Date of Service: February 07, 2024
pt c/o falls, dropping things, neuropathy
Objective Data
-
Labs:
Laboratory Results
02/07/24
05:31
WBC 10.8
Hgb 12.5 L
Hct 39.8
Plt Count 166
Sodium 138
Potassium 4.3
Chloride 105
Carbon Dioxide 25
BUN 22 H
Creatinine 0.6 L
Glucose 110 H
Calcium 9.1
Vital Signs:
max temp for 24 hours
02/06/24
19:16
Temp 97.6 F
Vital Signs
Temp Pulse Resp BP Pulse Ox
97.4 F 87 21 152/90 93
02/07/24 03:03 02/07/24 08:00 02/07/24 08:00 02/07/24 08:00 02/07/24 07:29
I&O
02/06/24 02/07/24 02/08/24
06:59 06:59 06:59
Intake Total 540 / 540
Output Total 1125 / 1125 750 / 750
Balance -585 / -585 -750 / -750
Review of Systems
-
All other systems: Reviewed and negative
Physical Exam
-
General: Well Developed, Well Nourished and Appears Chronically Ill
HEENT: Normocephalic and Atraumatic; Negative Oxygen
Respiratory: Crackles (bilaterally)
Cardiac: Regular Rhythm and S1/S2; Negative Murmur
GI: Soft, Nontender, Nondistended and Normal Bowel Sounds
Musculoskeletal: No Clubbing, No Cyanosis and No Edema
Neuro: Awake and Alert
[2024-02-07 12:37] LABS: Glucose - Point of Care 144 mg/dl (70-99)
[2024-02-07] MEDS: ZITHROMAX INFUSION 250 IV (14:03)
[2024-02-07] MEDS: MIRALAX 17 GRAMS PO (14:03)
[2024-02-07] MEDS: NOVOLOG FLEXPEN-LOW RESISTANCE 1 UNITS SC (18:24)
[2024-02-07 18:28] LABS: Glucose - Point of Care 190 mg/dl (70-99)
--- NOTE | 2024-02-07 18:39 | PTCARENOTE ---
Miralax given this pm with good results. See flowsheet. OOB all day- ambulating with walker- slight unsteady gait - contact guard. Tele shows AF, 70-80s BP 120s/70s. Skin noted- dressings CDI. Calm, denies pain. His cheeks are flushed red and
hot to touch this pm- cool cloth placed - now pt remembers that he has Rosacea. has cream she is applying. Last accu check taken after dinner eaten.
--- NOTE | 2024-02-07 19:01 | PTCARENOTE ---
Care assumed from previous RN. at bedside. Pt tele, maintained to q4hr BPs, most recent bP 127/75, HR 88, known afib on monitor. Pt has watchman device. Pt AAO, makes needs known. Respirations even and unlabored. Call vasquez in reach. Pt denies
further needs at this time.
[2024-02-07 22:15] LABS: Glucose - Point of Care 212 mg/dl (70-99)
[2024-02-07] MEDS: PAMELOR 25 MG PO (23:04)
[2024-02-07] MEDS: SENOKOT 17.1999999999999993 MG PO (23:04)
[2024-02-07] MEDS: LOW STRENGTH ASPIRIN 81 MG PO (23:04)
[2024-02-07] MEDS: STERILE WATER FOR INJECTION 10 ML IV (23:05)
[2024-02-07] MEDS: ROCEPHIN 1000 MG IV (23:05)
[2024-02-07] MEDS: DILAUDID 0.25 MG IV (23:25)
[2024-02-08 03:43] VITALS: BP 150/79
[2024-02-08 03:55] VITALS: BMI 27.3
[2024-02-08 04:00] VITALS: BP 118/80
[2024-02-08 04:15] VITALS: BMI 27.3
[2024-02-08 08:00] VITALS: BP 133/88
[2024-02-08] MEDS: COLACE 100 MG PO (08:19)
[2024-02-08] MEDS: TOPROL XL 37.5 MG PO (08:20)
[2024-02-08] MEDS: ZOLOFT 87.5 MG PO (08:20)
[2024-02-08] MEDS: DELTASONE 40 MG PO (08:21)
[2024-02-08] MEDS: MUCINEX 1200 MG PO (08:21)
[2024-02-08] MEDS: PROTONIX 40 MG PO (08:21)
[2024-02-08] MEDS: WELLBUTRIN XL (24 hour extended release) 150 MG PO (08:21)
[2024-02-08] MEDS: MIRALAX 17 GRAMS PO (08:21)
[2024-02-08] MEDS: DUONEB 3 ML INH (08:33)
[2024-02-08 09:08] LABS: Glucose - Point of Care 99 mg/dl (70-99)
[2024-02-08] MEDS: NOVOLOG FLEXPEN-LOW RESISTANCE SC ×2 (09:59→13:57)
[2024-02-08 10:30] VITALS: BP 108/68; BP 109/73; BP 130/88; PULSE 82; PULSE 83
--- NOTE | 2024-02-08 10:46 | W.PN.HOSP.TC ---
Today's Communication/Plan
-
d/c
Assessment / Plan
Assessment / Plan
HPI: 83 yo M with PMH significant for ASCVD, lymphoma and DM-II who presented to ED for evaluation s/p fall at home. Patient and his are visiting family in the area - currently reside in [place].
Patient states that he began with cough, congestion symptoms about 3 days [employer]. He had some fever / chills over the past 24 hours and felt somewhat SOB and increasingly weak.
Patient has some gait instability at baseline due to peripheral neuropathy. In the evening, he attempted to get OOB to use the bathroom, lost his balance and fell to the floor. He states that he did strike the back of his head on the floor. He
denied to LOC. He denies any chest pain, palpitations, dizziness, etc.
Patient was brought to the ED for evaluation and was noted to have fever to 102.1. Further evaluation reveals left-sided pneumonia / sepsis.
reportedly had some cold symptoms prior to the patient. He denies any other sick contacts.
severe sepsis POA due to CAP/Left Pneumonia-- Patient presented with fever, tachycardia, tachypnea and CXR showing L multilobar pneumonia with Acute Hypoxemic Respiratory Insufficiency--Resolved lactic acidosis--CT PE negative for PE --weaned off
O2, he is not on home O2--COVID/Flu negative, Urine Legionella/Strep Ag negative, blood culture negative, MRSA screen neg--Change Ceftriaxone and azithromycin to oral at d/c--Cont DuoNebs ATC and PRN--Added prednisone 40 mg x5 days for mild wheezing
(resolved)--Added Mucinex and acapella--Tylenol for fever/mild pain
Troponin elevation likely Non-Ischemic Myocardial Injury/h/o CAD--troponin peaked at 3.06--EKG shows RBBB with no prior tracing to compare--Continue current CV med regimen including daily ASA--Toprol increased by card--Follow update echo--Cardiology
on board
Fall at Home likely due Peripheral Neuropathy secondary to Chemo--Chronic Gait Dysfunction secondary to the above--CT head without acute findings this evening--Suspect increased weakness secondary to infection/sepsis.
Treat underlying infection as noted above--Continue nortriptyline--PT/OT rec acute vs SNF, would like [facility]--Physiatry consulted, accepted at [facility]
L lateral ankle pain by L lateral malleolus wound site, like due to neuropathy--Wound care CS--Neg for DVT, XR L foot unrevealing (neg for OM)--Follow arterial US--added low dose Dilaudid for pain (pt has morphine listed as allergy)--? need neuro
eval as oupt
DM-II--Hypoglycemia, resolved after treatment--Hold sulfonylurea acutely--s/p D50 for hypoglycemia--A1C 6.3%
Permanent Atrial Fibrillation, Stable--Continue PI[employer]O REGULATOR Toprol (with holding parameter) for rate control--Watchman device in place for stroke risk reduction.
Factor XI Deficiency- Stable--Scattered ecchymosis but no evidence of more severe bleeding--CT head unremarkable as noted above.
Anxiety/Depression- Stable--Continue outpatient med regimen.
DVT Prophylaxis: SCDs. Avoid pharmacologic prophylaxis given Factor XI deficiency
Code Status: Full
Anticipated Discharge: Today
Subjective/Interval History
-
Date of Service: February 08, 2024
pt ready for d/c to [facility]
Objective Data
-
Vital Signs:
max temp for 24 hours
02/07/24
22:01
Temp 98.6 F
Vital Signs
Temp Pulse Resp BP Pulse Ox
97.4 F 75 18 133/88 97
02/08/24 07:33 02/08/24 08:47 02/08/24 08:47 02/08/24 08:00 02/08/24 08:47
I&O
02/07/24 02/08/24 02/09/24
06:59 06:59 06:59
Intake Total 1000 / 1000
Output Total 750 / 750 300 / 300
Balance -750 / -750 700 / 700
Review of Systems
-
All other systems: Reviewed and negative
Physical Exam
-
General: Well Developed, Well Nourished and No Apparent Distress
HEENT: Normocephalic and Atraumatic
Respiratory: Clear to Auscultation; Negative Wheezes or Rhonchi
Cardiac: Regular Rhythm and S1/S2; Negative Murmur
GI: Soft, Nontender, Nondistended and Normal Bowel Sounds
Musculoskeletal: No Clubbing, No Cyanosis and No Edema
Neuro: Awake and Alert
--- NOTE | 2024-02-08 10:49 | CM ---
Patient seen at bedside with physician and patient also present. Patient accepted to [facility] for transfer today, Patient completed IMM and signed form placed on chart. Patient very happy. CM will continue to follow for discharge planning
needs.
Plan; transfer to [facility] today
[2024-02-08] MEDS: SODIUM CHLORIDE 3% FOR INHALATION 1 VIAL INH (10:52)
[2024-02-08 11:18] LABS: Glucose - Point of Care 160 mg/dl (70-99)
--- NOTE | 2024-02-08 12:09 | PTCARENOTE ---
Started Miralax yesterday-large BM after- loose stool this am- pt refused Colace and Miralax. She states he only goes every 3-4 days at home.
--- NOTE | 2024-02-08 18:30 | W.DCSUMMARY ---
Discharge Summary
Discharge Data
Date of Admission: 02/03/24
Date of Discharge: 02/08/24
-
Pending Results: No
Hospital Course
Primary care physician : Not Listed
Principal Discharge diagnosis : Severe sepsis (present on admission) due to community-acquired pneumonia, nonischemic myocardial injury troponin elevation
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
Hospital Course : Patient is an 83-year-old male who presented after a fall at home. He and his are visiting family in the area and reside in [place]. He began with cough, congestion about 3 days prior to admission. He had fever and
chills over the past 24 hours and felt short of breath and weak. He had gait instability at baseline due to peripheral neuropathy. On the evening of admission, he attempted to get out of bed to use the bathroom lost his balance and fell on the
floor. He stated that he struck the back of his head on the floor. He denied loss of consciousness. Patient was noted to have a fever of 102.1 in the emergency department and chest x-ray revealed left-sided pneumonia. Patient was admitted with
sepsis.
Problem #1: Severe sepsis (present on admission) due to community-acquired pneumonia. Patient was admitted with fever, tachycardia, tachypnea all consistent with SIRS and chest x-ray showing pneumonia making it sepsis. Patient also had acute
hypoxemic respiratory insufficiency with elevated lactic acidosis which is since resolved. Patient had a CT scan which was negative for pulmonary embolism. Patient was eventually weaned off oxygen and on room air. COVID testing, influenza
testing, urine Legionella and strep antigens were all negative. Blood cultures were negative and MRSA screen was negative. He was started on ceftriaxone and doxycycline which was then changed to azithromycin. At discharge, we are discharging with
5 more days of Augmentin. He completed prednisone bolus of 40 mg daily for 5 days for mild wheezing which is resolved.
Problem #2: Nonischemic myocardial injury troponin elevation. Troponin peaked at 3.06. Patient was seen in consultation by cardiology. Toprol was increased. He was continued on aspirin. Echocardiogram was updated which showed ejection fraction
50 to 55% with indeterminate diastolic function.
Problem #3: All other medical issues. 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 These
medical issues were stable during his hospitalization. Medications were continued as able.
Patient is stable for discharge to [facility] at this time. If there are any questions regarding this dictation or his hospital stay, please not hesitate to call. Our office number is [phone].
Time for discharge 36 minutes.
Important imaging findings :
CT SCAN CHEST IMPRESSION:
1. SEVERE LEFT LOWER LOBE PNEUMONIA and severe bronchitis in the left lower lobe bronchus and proximal segmental bronchi.
2. Moderate left upper lobe pneumonia.
3. Mild right upper and lower lobe pneumonia.
4. Mild cardiomegaly.
5. Severe calcific atherosclerotic plaque in the coronary arteries.
6. Left atrial appendage occlusion device in place.
7. 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
PERIPHERAL VASCULAR ULTRASOUND IMPRESSION:
No sonographic evidence for lower extremity venous thrombosis.
Procedure findings :
ULTRASOUND WITH ABIs IMPRESSION: Calcified atherosclerotic plaque noted throughout bilateral lower extremity arteries. However, bilateral ankle and toe brachial indices are within normal limits. Additionally, multiphasic waveforms are noted
throughout bilateral lower extremity arteries with no velocity elevation to suggest any significant stenosis. Continuous Doppler waveforms at the bilateral dorsalis pedis and posterior tibial arteries also remain multiphasic.
Discharge Plan
-
Patient Disposition: Acute Rehab Facility
Discharge Diagnosis/Procedures: Severe sepsis due to community-acquired pneumonia, non-ischemic myocardial injury with troponin elevation, peripheral neuropathy secondary to chemotherapy, left ankle pain and left lateral malleolus, type 2 diabetes
mellitus, permanent atrial fibrillation, factor XI deficiency, depression/anxiety
Condition: Good
Diet: Diabetic, Carb Controlled
Activity: As tolerated
Driving Restrictions: As prior to admission
Bathing Restrictions: None
Activity Restrictions/Additional Instructions:
Wound Care Instructions
L lateral ankle: clean with saline, skin prep to periwound, smear of honey gel and dry dressing daily.
Follow up at wound care center call for an appointment.
Referrals:
UNKNOWN - PT DOES,NOT KNOW [Family Provider] - in less than 1 week
Prescriptions:
New
sodium chloride [NebuSal] 3 % Solution For Nebulization
4 ml inhalation R BID Qty: 0 0RF
metoprolol succinate 25 mg Tablet Extended Release 24 Hr
37.5 mg PO BID Qty: 30 0RF
polyethylene glycol 3350 [HealthyLax] 17 gram Powder In Packet
17 g PO DAILY Qty: 14 0RF
docusate sodium 100 mg Capsule
100 mg PO BID Qty: 0 0RF
ipratropium-albuterol 0.5 mg-3 mg(2.5 mg base)/3 mL Solution For Nebulization
3 ml inhalation R Q4HPRN PRN (Reason: SOB/ wheezing) Qty: 0 0RF
ipratropium-albuterol 0.5 mg-3 mg(2.5 mg base)/3 mL Solution For Nebulization
3 ml inhalation R QID Qty: 0 0RF
guaifenesin 600 mg Tablet Extended Release 12hr
1,200 mg PO Q12 Qty: 0 0RF
amoxicillin-pot clavulanate 500-125 mg tablet
1 tab PO Q12H Qty: 10 0RF
Continued
glyburide 5 mg Tablet
5 mg PO DAILY
pantoprazole [Protonix] 40 mg Tablet,Delayed Release (Dr/Ec)
40 mg PO DAILY
bupropion HCl [Wellbutrin XL] 150 mg Tablet Extended Release 24 Hr
150 mg PO DAILY
tadalafil 2.5 mg Tablet
2.5 mg PO DAILY
Repatha Syringe 140 mg/mL Syringe
140 mg SC Q2W
nortriptyline 25 mg Capsule
25 mg PO HS
aspirin 81 mg Tablet,Chewable
81 mg PO HS
mirabegron [Myrbetriq] 25 mg Tablet Extended Release 24 Hr
25 mg PO HS
sertraline 50 mg tablet
87.5 mg PO DAILY
Patient Comments:
02/04/2024: Spouse takes she gives him a whole tab (50mg), a half a tab (25), and then an half of a half (1/4 tab 12.5).
coenzyme Q10 [Co Q-10] 200 mg Capsule
200 mg PO DAILY
cholecalciferol (vitamin D3) [Vitamin D3] 50 mcg (2,000 unit) Tablet
50 mcg PO DAILY
alpha lipoic acid 600 mg Tablet
600 mg PO BID
Discontinued
metoprolol succinate [Toprol XL] 25 mg Tablet Extended Release 24 Hr
25 mg PO BID
Discharge Orders:
Discharge Patient (As Directed); Ordered 02/08/24
Ordered By: Mariana Kirby
Discharge Date and Time
Discharge Date/Time: 02/08/24 13:34
Print Language: AZERI
== END 2024-02-08 13:34 | DRG 871 ==
LOC: IMU 23:55
PROVIDERS: Internal Medicine; ADMITTING PHYSICIAN Hospitalist; ATTENDING PHYSICIAN Internal Medicine; CONSULT PHYSICIAN Internal Medicine Cardiovascular Disease; CONSULT PHYSICIAN Physical Medicine & Rehabilitation; EMERGENCY PHYSICIAN Emergency Medicine
PROC: 5A09357 Assistance with Respiratory Ventilation, Less than 24 Consecutive Hours, Continuous Positive Airway Pressure (ICD-10-PCS; 2024-02-04)
DX: A41.9 Sepsis, unspecified organism (principal); J18.9 Pneumonia, unspecified organism; J96.01 Acute respiratory failure with hypoxia; I48.21 Permanent atrial fibrillation; D68.1 Hereditary factor XI deficiency; I5A Non-ischemic myocardial injury (non-traumatic); E87.20 Acidosis, unspecified; R65.20 Severe sepsis without septic shock; I25.10 Atherosclerotic heart disease of native coronary artery without angina pectoris; E11.42 Type 2 diabetes mellitus with diabetic polyneuropathy; G62.0 Drug-induced polyneuropathy; T45.1X5A Adverse effect of antineoplastic and immunosuppressive drugs, initial encounter; N40.0 Benign prostatic hyperplasia without lower urinary tract symptoms; F32.A Depression, unspecified; F41.9 Anxiety disorder, unspecified; R26.2 Difficulty in walking, not elsewhere classified; I10 Essential (primary) hypertension; K21.9 Gastro-esophageal reflux disease without esophagitis; E78.00 Pure hypercholesterolemia, unspecified; F12.90 Cannabis use, unspecified, uncomplicated; I45.10 Unspecified right bundle-branch block; E11.649 Type 2 diabetes mellitus with hypoglycemia without coma; Z11.52 Encounter for screening for COVID-19; Z79.82 Long term (current) use of aspirin; Z79.84 Long term (current) use of oral hypoglycemic drugs; Z79.899 Other long term (current) drug therapy; Z85.71 Personal history of Hodgkin lymphoma; Z85.46 Personal history of malignant neoplasm of prostate; Z91.81 History of falling; Z95.5 Presence of coronary angioplasty implant and graft
CPT/HCPCS: 51701; 51798; 70450; 71045; 71275; 73630; 80048; 80053; 81003; 81015; 82248; 82962; 83036; 83605; 83735; 83880; 84145; 84484; 85025; 85027; 87040; 87070; 87449; 87502; 87811; 87899; 93005; 93306; 93922; 93925; 93970; 94640; 94660; 94667; 94668; 94669; 96361; 96365; 96375; 97116; 97162; 97166; 97530; 99291; Q9967